=== PATIENT | female | born 1965 | race Caucasian/White ===

== ENCOUNTER → 2017-12-17 15:27 | Outpatient (CLI) | payer OTHER, SELFPAY ==
--- NOTE | 2017-12-17 15:29 | CT_ITS ---
STUDY: CT CHEST WITH CONTRAST REASON FOR EXAM: Female, 52 years old. ABNORMAL CXR-HAD PNEUMONIA END OF SEPTEMBER, CHRONIC COUGH, HX-ASTHMA RADIATION DOSAGE (If Supplied By Facility): CTDIvol = ( 11.22 ) mGy, DLP = ( 349.67 ) mGycm TECHNIQUE: Transaxial imaging was performed following intravenous administration of 100 ml of Isovue 300 contrast material. Individualized dose optimization techniques were used for this CT. COMPARISON: CR Chest Oct 02 2017 3:07pm FINDINGS: There is a mild infiltrate in the right lower lobe consistent for pneumonia. There is no demonstrated pleural abnormality. Normal heart and pericardium. Normal mediastinum. Normal hilar regions. Normal enhanced pulmonary arteries. Normal aorta arch and descending thoracic aorta. There is endplate spondylosis of the vertebral body. There is no demonstrated abnormality of the visualized upper abdomen. CT/Chest WITH Contrast IMPRESSION: There is a mild infiltrate in the right lower lobe consistent for pneumonia. Electronically Signed: Arnoldo Sandoval MD at 19:25 EDT , Service support ,
== END ==
PROVIDERS: Family Provider Nurse Practitioner; PCP Nurse Practitioner; Visit Provider Nurse Practitioner
DX: R93.8 Abnormal findings on diagnostic imaging of other specified body structures (principal)
CPT/HCPCS: 71260; Q9967

== ENCOUNTER → 2018-01-24 13:57 | Outpatient (CLI) | payer OTHER, SELFPAY | PROVIDERS: Family Provider Nurse Practitioner; PCP Nurse Practitioner; Visit Provider Nurse Practitioner | DX: R00.2 Palpitations (principal) | CPT/HCPCS: 93225; 93226 ==

== ENCOUNTER → 2018-08-16 10:52 | Outpatient (CLI) | payer OTHER, SELFPAY ==
[2018-08-16 11:20] LABS: Absolute Lymphocyte Count 1.58 X10^3/ul (0.83-4.51); Absolute Neutrophil Count 2.4 X10^3/uL (2.0-7.7); Basophil# 0.02 X10^3/uL; Basophil% 0.4 % (0-1); Eosinophil# 0.15 X10^3/uL; Eosinophils% 3.1 % (0-5); Hematocrit 44.2 % (37-47); Hemoglobin 14.5 g/dl (12.0-15.0); Lymphocyte # 1.58 X10^3/ul (4.0); Lymphocyte % 33.1 % (19-41); Mean Corp Hgb Conc 32.8 g/gl (32-36); Mean Corpuscular Hgb 31.6 pg (27.0-32.0); Mean Corpuscular Volume 96.3 fL (81-99); Mean Platelet Vol. 8.3 fl (6.2-12.0); Monocyte# 0.64 X10^3/uL; Monocyte% 13.4 % (0-10); Neutrophil # 2.38 X10^3/uL (2.7-7.7); Neutrophil % 49.8 % (47-70); POSITIVE COUNT NO; POSITIVE DIFFERENTIAL NO; POSITIVE MORPHOLOGY NO; Platelet Count 245 K/mm3 (150-450); RBC Distribution Width CV 12.8 % (11.6-14.6); RBC Distribution Width SD 44.2 fl (35.1-43.9); Red Blood Count 4.59 M/mm3 (4.2-5.4); White Blood Count 4.8 K/mm3 (4.4-11.0)
[2018-08-16 11:59] LABS: AST(SGOT) 17 U/L (15-37); Alanine Aminotransfer ALT/SGPT 22 U/L (13-56); Albumin, Serum 3.9 g/dL (3.2-5.0); Alkaline Phosphatase 61 U/L (45-117); Anion Gap 3 (5-15); BUN 14 mg/dL (7-18); BUN/Creat Ratio 16.4 RATIO (10-20); Bilirubin, Direct 0.26 mg/dL (0.00-0.30); Calcium,Total 8.3 mg/dL (8.5-10.1); Chloride 105 mmol/L (98-107); Cholesterol 202 mg/dL (200); Creatinine, Serum 0.86 mg/dL (0.55-1.02); EST Glomerular Filtration Rate 74 mL/min (>60); Est Glom Filt Rate - Afr Amer 89 mL/min (>60); Globulin 3.2 g/dL (2.2-4.2); Glucose 82 mg/dL (74-106); High Density Lipoprotein 70 mg/dL; Potassium 4.3 mmol/L (3.5-5.1); Protein, Total 7.1 g/dL (6.4-8.2); Sodium Level 138 mmol/L (136-145); Triglycerides 84 mg/dL; Very Low Density Lipoprotein 17 mg/dL (5-40)
== END ==
PROVIDERS: Family Provider Nurse Practitioner; PCP Nurse Practitioner; Referring Provider Nurse Practitioner; Visit Provider Nurse Practitioner
DX: Z13.220 Encounter for screening for lipoid disorders (principal); J45.909 Unspecified asthma, uncomplicated
CPT/HCPCS: 36415; 80048; 80061; 80076; 85025

== ENCOUNTER → 2018-10-03 10:30 | Outpatient (CLI) | payer OTHER, SELFPAY ==
--- NOTE | 2018-10-03 10:33 | BI_ITS ---
MAMMOGRAPHY - BILATERAL SCREENING REASON FOR EXAM: Female, 53 years old. Routine annual screening examination. PERTINENT HISTORY: Non-contributory. TECHNIQUE: Digital bilateral breast pranay (3D mammographic acquisition) in the CC and MLO projections. 2-D mediolateral oblique (MLO) and craniocaudad (CC) views of both breasts were obtained. CAD: Full Field Digital Mammography with Computer Added Detection was performed. COMPARISON: Comparison is made with prior examination dated March 19, 2017. FINDINGS: Breast Composition: The breasts are heterogeneously dense, which may obscure small masses. There are no dominant masses or suspicious calcifications. Stable bilateral axillary lymph nodes. No other significant abnormalities are identified. There has been no significant change since the prior study. BI/SCREENING MAMM (CAD), BILAT IMPRESSION: Stable bilateral screening mammogram. Yearly follow-up mammogram recommended. (A) ASSESSMENT CATEGORY: BIRADS Category 2: Benign. A letter regarding these results will be sent to the patient by the facility within 30 days. Approximately 10% of breast cancers are not detected by mammography. A normal mammogram should not delay biopsy of a clinically suspicious abnormality. [id number] Electronically Signed: Vamsi Akbar MD at 9:24 EST Tel [phone], Service support ,
== END ==
PROVIDERS: Family Provider Nurse Practitioner; PCP Nurse Practitioner; Visit Provider Nurse Practitioner Women's Health
DX: Z12.31 Encounter for screening mammogram for malignant neoplasm of breast (principal)
CPT/HCPCS: 77063; 77067

== ENCOUNTER 2019-07-06 14:34 | Emergency (ER) | payer OTHER, SELFPAY ==
[2018-10-03 11:45] VITALS: BMI 25.3
[2019-07-06] VITALS (7 sets, daily range): BP systolic 116–147; BP diastolic 72–94; PULSE 71–120; RESP 16–21; TEMP 38.2–38.4; O2SAT 97–100; BMI 22.9
--- NOTE | 2019-07-06 14:59 | EKG12_ITS ---
Test Reason : CP Blood Pressure : / mmHG Vent. Rate : 112 BPM Atrial Rate : 112 BPM P-R Int : 154 ms QRS Dur : 094 ms QT Int : 326 ms P-R-T Axes : 044 046 055 degrees QTc Int : 444 ms Sinus tachycardia [id number] Confirmed by LEELEE GILLETTE, KEV ([id number]), story editor LOUISE MURRAY ([id number]) on 07/08/2019 12:27:54 PM Referred By: RUBI/ARCAELI Confirmed By:KEV MCKOY MD
--- NOTE | 2019-07-06 15:02 | RAD_ITS ---
STUDY: X-RAY CHEST REASON FOR EXAM: Female, 54 years old. Chest pain, cough TECHNIQUE: Single AP portable view of the chest. COMPARISON: 10/02/2017 FINDINGS: The lungs are clear and expanded. There is no demonstrated pleural abnormality. Normal size heart. Normal mediastinum and kinjal. Normal visualized pulmonary arteries. Normal visualized aortic arch and descending thoracic aorta. Normal visualized thoracic spine. Normal visualized ribs, clavicles, and shoulders. There is no demonstrated abnormality of the visualized soft tissue structures of the upper abdomen. RAD/Chest 1 View (Portable) IMPRESSION: Normal x-ray examination of the chest. Electronically Signed: Michael Rene MD at 15:19 EDT Tel , Service support ,
--- NOTE | 2019-07-06 15:03 | ED.DCSUM_ITS ---
- ER Visit Summary Date of Service: 07/06/19 Chief Complaint: Chest pain History of Present Illness: The patient is a 54 F with chest pain that started yesterday and was worse today. It is retrosternal and radiates to her left chest. Worse with breathing and. Patient has associated shortness of breath an d cough. She has a history of asthma. She used 1 puff of her albuterol inhaler about 2 hours ago. No improvement. She is not currently on steroids or antibiotics. She denies sputum or fever, although she does have a fever here. She denies any history of heart disease, PE. Physical Examination: Temperature 101.1 and heart rate 120. Blood pressure 147/94. 100% on room air. Patient alert and oriented. Appears uncomfortable but not in distress. HEENT exam grossly unremarkable. Heart tachycardic but regular. Lungs clear bilaterally. Extremities nontender with no edema. Skin appears normal. Test Results: EKG showed sinus rhythm at a rate of 112. No sign of acute ischemia or infarction pattern. X-ray and blood work are pending, see below. Emergency Department Course and Treatment: EKG was done. Patient was placed on a monitor. She was treated with IV fluids and Tylenol. Labs and x-ray pending. Patient had a white count of 13.4. Otherwise CBC and BMP normal. Troponin normal. Lactate normal. D-dimer normal. TSH normal. Influenza test negative. Chest x-ray negative. Patient has a fever and tachycardia and elevated white blood cell count. On reevaluation, heart rate is 97. She is afebrile. I believe this is likely an infectious process. Some influenza type illness or viral syndrome. Because of her history of asthma, I did treat her with a DuoNeb, Solu-Medrol, and azithromycin. On reevaluation, she is stable. She is low risk for PE. A d-dimer was negative. She has no cardiac risk factors. There is nothing to suggest dissection. I suspect this is infectious. Patient was advised guarding the risks and will follow-up with her doctor as an outpatient. Return for any new or worsening issues. Treatment Plan: As above Disposition: Discharged Impression: 1. Atypical chest pain 2. Febrile illness This note was generated with [employer] software. It may contain incorrect words, spelling, and punctuation that were not noted in review of the chart prior to signing ED Disposition - Plan for ED Patient: Referrals: Chayo Adame, WIND TUNNEL TECHNICIAN-C [Primary Care Provider] -
[2019-07-06] MEDS: Acetaminophen 325 MG Tablet 650 MG PO (15:23)
[2019-07-06] MEDS: 0.9% Normal Saline 1,000 ML 1000 ML IV (15:23)
[2019-07-06 15:42] LABS: Absolute Lymphocyte Count 1.07 X10^3/uL (0.83-4.51); Basophil# 0.03 X10^3/uL; Basophil% 0.2 % (0-1); Eosinophil# 0.03 X10^3/uL; Eosinophils% 0.2 % (0-5); Hematocrit 41.6 % (37-47); Hemoglobin 13.8 g/dL (12.0-15.0); Lymphocyte # 1.07 X10^3/ul (4.0); Mean Corp Hgb Conc 33.2 g/dL (32-36); Mean Corpuscular Hgb 31.4 pg (27.0-32.0); Mean Corpuscular Volume 94.5 fL (81-99); Mean Platelet Vol. 8.7 fl (6.2-12.0); Monocyte# 1.22 X10^3/uL; Monocyte% 9.1 % (0-10); NRBC Flagged by Analyzer 0 % (0-5); Neutrophil # 10.99 X10^3/uL (2.7-7.7); Neutrophil % 82.1 % (47-70); Platelet Count 218 K/mm3 (150-450); RBC Distribution Width CV 11.9 % (11.6-14.6); RBC Distribution Width SD 41.6 fl (35.1-43.9); White Blood Count 13.4 K/mm3 (4.4-11.0)
[2019-07-06 16:00] LABS: Lactic Acid 1.3 mmol/L (0.4-2.0)
[2019-07-06 16:06] LABS: Anion Gap 6 (5-15); BUN 16 mg/dL (7-18); BUN/Creat Ratio 22.3 RATIO (10-20); Calcium,Total 9.2 mg/dL (8.5-10.1); Chloride 105 mmol/L (98-107); Creatinine, Serum 0.72 mg/dL (0.55-1.02); EST Glomerular Filtration Rate 90 mL/min (>60); Est Glom Filt Rate - Afr Amer 109 mL/min (>60); Estimated Creatinine Clearance 96.59 ml/min; Glucose 95 mg/dL (74-106); Potassium 3.8 mmol/L (3.5-5.1); Sodium Level 139 mmol/L (136-145); Thyroid Stim Hormone (TSH) 0.65 uIU/mL (0.358-3.74)
[2019-07-06 16:11] LABS: D-Dimer Quantitative (DVT/PE) 0.28 FEU/ug/m (0.27-0.49)
[2019-07-06] MEDS: Ipratropium/Albuterol Sulfate 3 ML AMPUL.NEB INHALATION (16:39)
[2019-07-06] MEDS: MethylPREDNISolone 125 MG/2 ML Vial IV (16:44)
[2019-07-06] MEDS: Azithromycin 250 MG Tablet 500 MG PO (16:44)
--- NOTE | 2019-07-06 17:38 | DCINST.ED_ITS ---
ED Disposition - Plan for ED Patient: Instructions: CHEST PAIN, Uncertain Cause Prescriptions: Azithromycin [Zithromax] 250 mg PO DAILY #4 tab Prescription Printed Referrals: Chayo Adame, PROGRAMMING DEVELOPMENT PROJECT MANAGER-C [Primary Care Provider] -
== END 2019-07-06 17:53 | disposition home or self-care (01) ==
PROVIDERS: Emergency Provider Emergency Medicine; Family Provider Nurse Practitioner; PCP Nurse Practitioner
DX: R07.89 Other chest pain (principal); R50.9 Fever, unspecified; J45.909 Unspecified asthma, uncomplicated
CPT/HCPCS: 71045; 80048; 83605; 84443; 84484; 85025; 85379; 87804; 93005; 94640; 96361; 96374; 99284; J7030; A4216

== ENCOUNTER → 2019-10-21 14:53 | Outpatient (CLI) | payer OTHER, SELFPAY ==
[2018-10-03 11:45] VITALS: BMI 25.3
[2019-07-06 14:34] VITALS: BMI 22.9
--- NOTE | 2019-10-21 14:54 | BI_ITS ---
MAMMOGRAPHY - BILATERAL SCREENING REASON FOR EXAM: Female, 54 years old. Routine annual screening examination. PERTINENT HISTORY: Non-contributory. TECHNIQUE: Digital bilateral breast elliott (3D mammographic acquisition) in the CC and MLO projections. 2-D mediolateral oblique (MLO) and craniocaudad (CC) views of both breasts were obtained. CAD: Full Field Digital Mammography with Computer Added Detection was performed. COMPARISON: Comparison is made with prior study dated October 03, 2018. FINDINGS: Breast Composition: The breasts are heterogeneously dense, which may obscure small masses. There are no dominant masses or suspicious calcifications. Stable benign-appearing small axillary lymph nodes. No other significant abnormalities are identified. There has been no significant change since the prior study. BI/SCREEN MAMM (CAD) W/ELLIOTT BILAT IMPRESSION: Stable bilateral screening mammogram. Yearly follow-up mammogram recommended. (A) ASSESSMENT CATEGORY: BIRADS Category 2: Benign. A letter regarding these results will be sent to the patient by the facility within 30 days. Approximately 10% of breast cancers are not detected by mammography. A normal mammogram should not delay biopsy of a clinically suspicious abnormality. [id number] Electronically Signed: Vamsi Akbar, at 15:55 EST , Service support ,
== END ==
PROVIDERS: Family Provider Nurse Practitioner; PCP Nurse Practitioner; Referring Provider Nurse Practitioner Women's Health; Visit Provider Nurse Practitioner Women's Health
DX: Z12.31 Encounter for screening mammogram for malignant neoplasm of breast (principal)
CPT/HCPCS: 77063; 77067

== ENCOUNTER → 2019-12-31 12:26 | Outpatient (CLI) | payer OTHER, SELFPAY ==
[2019-10-21 15:48] VITALS: BMI 22.9
--- NOTE | 2019-12-31 12:29 | RAD_ITS ---
STUDY: X-RAY CHEST REASON FOR EXAM: Female, 54 years old. COUGH X 3 WEEKS. LOW GRADE FEVER TECHNIQUE: 2 views COMPARISON: Prior chest radiograph of July 06, 2019, October 02, 2017 and a prior chest CT exam of December 17, 2017 FINDINGS: Small focal area of linear change in the lingula without other infiltrates, consolidation or pleural effusion. Normal size heart. Normal mediastinum and kinjal. Normal visualized pulmonary arteries. Normal visualized aortic arch and descending thoracic aorta. Normal visualized thoracic spine. Normal visualized ribs, clavicles, and shoulders. There is no demonstrated abnormality of the visualized soft tissue structures of the upper abdomen. RAD/Chest PA and Lateral IMPRESSION: Minimal infiltrate or atelectasis in the lingula. Otherwise negative for major consolidation, focal atelectasis, cardiomegaly or pleural effusion. This pattern not an established pattern for COVID19 infection. Recommend management on clinical grounds if the patient has known or is under investigation for this infection. No specific imaging follow-up recommended based on CDC and ACR guidelines. Electronically Signed: Joyce Roberts MD at 17:26 EDT , Service support ,
== END ==
PROVIDERS: PCP Nurse Practitioner; Referring Provider Internal Medicine; Visit Provider Internal Medicine
DX: R05 Cough (principal)
CPT/HCPCS: 71046

== ENCOUNTER → 2020-04-04 17:24 | Outpatient (CLI) | payer OTHER, SELFPAY ==
[2019-10-21 15:48] VITALS: BMI 22.9
--- NOTE | 2020-04-04 17:30 | CT_ITS ---
STUDY: CT ABDOMEN AND PELVIS WITH CONTRAST REASON FOR EXAM: Female, 55 years old. PAIN LEFT SIDE SINCE SAT. NAUSEA AND DIARRHEA. BLOODY STOOL TODAY. RADIATION DOSAGE (If Supplied By Facility): CTDIvol = ( 13.869 ) mGy, DLP = ( 697.20 ) mGycm TECHNIQUE: Transaxial images were obtained from the dome of the diaphragm to the symphysis pubis with oral contrast. Oral and amp; IV Gastrografin and amp; 100mL Isovue-300 was administered. Sagittal and coronal images were reconstructed. Individualized dose optimization techniques were used for this CT. COMPARISON: None. FINDINGS: The visualized lung bases are unremarkable. The visualized portions of the heart are within normal limits. Normal liver. Normal gallbladder and extrahepatic biliary system. Normal spleen. Normal pancreas. Normal bilateral adrenal glands. No obstructive uropathy, there is a simple 1 cm cyst in the right kidney Normal visualized stomach. Normal small intestine. The distal descending and proximal sigmoid colon, there is some mucosal thickening with associated pericolonic inflammation consistent with acute focal diverticulitis. No perforation or abscess is noted. Retained stool noted throughout the majority of the colon with scattered colonic diverticula noted. There is non-visualization of the appendix. Normal abdominal aorta. Normal inferior vena cava. Normal retroperitoneum. Normal urinary bladder. Uterus is present and contains an IUD. Normal abdominal wall. There are diffuse degenerative changes of the visualized lumbar spine. CT/Abdomen/Pelvis WITH Contrast IMPRESSION: Abnormal submucosal thickening of the distal descending and proximal sigmoid colon with pericolonic inflammation suggesting acute focal diverticulitis. No perforation or abscess noted. Findings seen best on coronal recon images 40 through 53 No suspicious solid organ abnormality, 1 cm right renal cyst needs no specific follow-up IUD present within the uterus Electronically Signed: Orlando Glaser MD at 18:41 EDT , Service support ,
== END ==
PROVIDERS: PCP Nurse Practitioner; Visit Provider Nurse Practitioner
DX: R10.32 Left lower quadrant pain (principal)
CPT/HCPCS: 74177; Q9967

== ENCOUNTER → 2020-04-04 | Outpatient (CLI) | payer OTHER, SELFPAY ==
[2019-10-21 15:48] VITALS: BMI 22.9
[2020-04-04 12:54] LABS: Absolute Lymphocyte Count 1.68 X10^3/uL (0.83-4.51); Basophil# 0.04 X10^3/uL; Basophil% 0.3 % (0-1); Eosinophil# 0.06 X10^3/uL; Eosinophils% 0.5 % (0-5); Hemoglobin 15.1 g/dL (12.0-15.0); Lymphocyte # 1.68 X10^3/ul (4.0); Lymphocyte % 13.9 % (19-41); Mean Corp Hgb Conc 32.8 g/dL (32-36); Mean Corpuscular Hgb 31.1 pg (27.0-32.0); Mean Corpuscular Volume 94.8 fL (81-99); Mean Platelet Vol. 9.3 fl (6.2-12.0); Monocyte# 1.23 X10^3/uL; Monocyte% 10.2 % (0-10); NRBC Flagged by Analyzer 0 % (0-5); Neutrophil # 9.03 X10^3/uL (2.7-7.7); Neutrophil % 74.8 % (47-70); Platelet Count 274 K/mm3 (150-450); RBC Distribution Width CV 12.1 % (11.6-14.6); RBC Distribution Width SD 41.8 fl (35.1-43.9); Red Blood Count 4.85 M/mm3 (4.2-5.4); White Blood Count 12.1 K/mm3 (4.4-11.0)
[2020-04-04 13:02] LABS: Albumin, Serum 4.2 g/dL (3.2-5.0); BUN 14 mg/dL (7-18); BUN/Creat Ratio 16.9 RATIO (10-20); Calcium,Total 9.2 mg/dL (8.5-10.1); Chloride 105 mmol/L (98-107); Creatinine, Serum 0.83 mg/dL (0.55-1.02); EST Glomerular Filtration Rate 76 mL/min (>60); Est Glom Filt Rate - Afr Amer 92 mL/min (>60); Glucose 91 mg/dL (74-106); Phosphorus 3.8 mg/dL (2.5-4.9); Potassium 4.1 mmol/L (3.5-5.1); Sodium Level 140 mmol/L (136-145)
== END | disposition home or self-care (01) ==
LOC: LABSPEC 12:36
PROVIDERS: PCP Nurse Practitioner; Referring Provider Nurse Practitioner; Visit Provider Nurse Practitioner
DX: R10.32 Left lower quadrant pain (principal); R50.9 Fever, unspecified
CPT/HCPCS: 80069; 85025

== ENCOUNTER → 2020-11-04 13:17 | Outpatient (CLI) | payer OTHER, SELFPAY ==
[2019-10-21 15:48] VITALS: BMI 22.9
--- NOTE | 2020-11-04 13:20 | BI_ITS ---
MAMMOGRAPHY - BILATERAL SCREENING REASON FOR EXAM: Female, 55 years old. Routine annual screening examination. PERTINENT HISTORY: Non-contributory. TECHNIQUE: Digital bilateral breast elliott (3D mammographic acquisition) in the CC and MLO projections. 2-D mediolateral oblique (MLO) and craniocaudad (CC) views of both breasts were obtained. CAD: Full Field Digital Mammography with Computer Added Detection was performed. COMPARISON: Comparison is made with prior study dated 10/21/2019 and 10/03/2015. FINDINGS: Breast Composition: The breasts are heterogeneously dense, which may obscure small masses. There are no dominant masses or suspicious calcifications. Stable small benign-appearing bilateral axillary lymph nodes. No other significant abnormalities are identified. There has been no significant change since the prior study. BI/SCRN MAMM (CAD)W/ELLIOTT BILAT IMPRESSION: Stable bilateral screening mammogram. Yearly follow-up mammogram recommended. (A) ASSESSMENT CATEGORY: BIRADS Category 2: Benign. A letter regarding these results will be sent to the patient by the facility within 30 days. Approximately 10% of breast cancers are not detected by mammography. A normal mammogram should not delay biopsy of a clinically suspicious abnormality. [id number] Electronically Signed: Vamsi Akbar MD at 14:37 EST , Service support ,
== END ==
PROVIDERS: PCP Nurse Practitioner; Referring Provider Obstetrics & Gynecology; Visit Provider Obstetrics & Gynecology
DX: Z12.31 Encounter for screening mammogram for malignant neoplasm of breast (principal)
CPT/HCPCS: 77063; 77067

== ENCOUNTER → 2020-11-11 15:02 | Outpatient (CLI) | payer OTHER, SELFPAY ==
[2020-11-04 14:29] VITALS: BMI 23.3
--- NOTE | 2020-11-11 15:03 | US_ITS ---
STUDY: ULTRASOUND BREAST - RIGHT REASON FOR EXAM: Female, 55 years old. Palpable lump in the right breast. TECHNIQUE: Axial and longitudinal images of the RIGHT breast were performed with a high resolution ultrasound transducer. # OF IMAGES: 35 COMPARISON: Comparison is made with prior mammogram dated 11/04/2020. FINDINGS: RIGHT Breast: The upper lateral aspect of the right breast was examined by ultrasound. There is dense fibroglandular tissue. No sonographic abnormality is seen. US/Breast Limited Unilateral IMPRESSION: No sonographic abnormality is seen. ASSESSMENT CATEGORY: BIRADS Category 1: Negative. A letter regarding these results will be sent to the patient by the facility within 30 days. Electronically Signed: Vamsi Akbar MD at 15:35 EST , Service support ,
== END ==
PROVIDERS: PCP Nurse Practitioner; Referring Provider Obstetrics & Gynecology; Visit Provider Obstetrics & Gynecology
DX: N63.11 Unspecified lump in the right breast, upper outer quadrant (principal)
CPT/HCPCS: 76642

== ENCOUNTER 2021-12-15 08:55 | Outpatient (CLI) | payer OTHER, SELFPAY ==
[2021-12-15 09:24] LABS: Absolute Lymphocyte Count 1.48 X10^3/uL (0.83-4.51); Absolute Neutrophil Count 2.4 X10^3/uL (2.0-7.7); Basophil# 0.04 X10^3/uL; Basophil% 0.9 % (0-1); Eosinophil# 0.09 X10^3/uL; Hematocrit 42.5 % (37-47); Hemoglobin 14.1 g/dL (12.0-15.0); Lymphocyte # 1.48 X10^3/ul (0.83-4.51); Lymphocyte % 32.2 % (19-41); Mean Corp Hgb Conc 33.2 g/dL (32-36); Mean Corpuscular Hgb 30.9 pg (27.0-32.0); Mean Corpuscular Volume 93.2 fL (81-99); Mean Platelet Vol. 8.4 fl (6.2-12.0); NRBC Flagged by Analyzer 0 % (0-5); Neutrophil # 2.39 X10^3/uL (2.7-7.7); Neutrophil % 51.9 % (47-70); Platelet Count 232 K/mm3 (150-450); RBC Distribution Width SD 41.5 fl (35.1-43.9); Red Blood Count 4.56 M/mm3 (4.2-5.4); White Blood Count 4.6 K/mm3 (4.4-11.0)
[2021-12-15 10:01] LABS: ALB/GLOB Ratio 1.3 RATIO (0.9-2.4); AST(SGOT) 45 U/L (15-37); Alanine Aminotransfer ALT/SGPT 37 U/L (13-56); Albumin, Serum 4.1 g/dL (3.2-5.0); Alkaline Phosphatase 60 U/L (45-117); Anion Gap 3 (5-15); BUN 13 mg/dL (7-18); BUN/Creat Ratio 12.3 RATIO (10-20); Calcium,Total 9.2 mg/dL (8.5-10.1); Chloride 108 mmol/L (98-107); Cholesterol 206 mg/dL (200); Creatinine, Serum 1.06 mg/dL (0.55-1.02); EST Glomerular Filtration Rate 57 mL/min (>60); Est Glom Filt Rate - Afr Amer 69 mL/min (>60); Globulin 3.1 g/dL (2.2-4.2); Glucose 95 mg/dL (74-106); High Density Lipoprotein 83 mg/dL; Potassium 4.2 mmol/L (3.5-5.1); Protein, Total 7.2 g/dL (6.4-8.2); Sodium Level 140 mmol/L (136-145); Thyroid Stim Hormone (TSH) 1.13 uIU/mL (0.358-3.74); Triglycerides 69 mg/dL; Very Low Density Lipoprotein 14 mg/dL (5-40)
== END 2021-12-15 23:59 | disposition home or self-care (01) ==
LOC: LAB 08:56
PROVIDERS: PCP Nurse Practitioner; Visit Provider Nurse Practitioner
DX: R03.0 Elevated blood-pressure reading, without diagnosis of hypertension (principal)
CPT/HCPCS: 36415; 80053; 80061; 84443; 85025

== ENCOUNTER 2021-12-22 09:18 | Outpatient (CLI) | payer OTHER, SELFPAY ==
--- NOTE | 2021-12-22 09:21 | BI_ITS ---
MAMMOGRAPHY - BILATERAL SCREENING 3-D TOMOSYNTHESIS REASON FOR EXAM: Female, 56 years old. screening mammogram PERTINENT HISTORY: No significant family history. TECHNIQUE: 2-D mammograms and 3-D Tomosynthesis of the breast (s) were performed. CAD was performed. COMPARISON: 11/04/2020 FINDINGS: The breast composition is heterogeneously dense that can obscure small breast masses. Scattered benign calcifications are seen. No dense spiculated masses or suspicious microcalcifications are identified. No architectural distortion is identified. There is no skin thickening or retraction. There has been no significant change since the prior study. BI/SCRN MAMM (CAD)W/ELLIOTT BILAT IMPRESSION: No mammographic signs of malignancy. Routine yearly mammograms recommended. ASSESSMENT CATEGORY: BIRADS Category 1: Negative. A letter regarding these results will be sent to the patient by the facility within 30 days. FOLLOW UP RECOMMENDATION: Yearly follow up mammogram recommended. (A) Approximately 10% of breast cancers are not detected by mammography. A normal mammogram should not delay biopsy of a clinically suspicious abnormality. Electronically Signed: Michael Rene MD at 13:27 EDT ,
--- NOTE | 2021-12-22 09:22 | US_ITS ---
STUDY: ABDOMINAL ULTRASOUND - RIGHT UPPER QUADRANT REASON FOR VISIT: Female, 56 years old. ABDOMEN PAIN ELEVATED LIVER ENZYMERS TECHNIQUE: Ultrasound evaluation of the right upper quadrant was performed with real-time and static duvall-scale imaging. TECHNICAL QUALITY: Adequate. COMPARISON: None. FINDINGS: Liver: There is increased echogenicity consistent with fatty infiltration. The bile ducts are within normal limits. There is hepatic color flow. The direction of portal flow is hepatopetal. There is no demonstrated mass lesion. Gallbladder: Normal distended gallbladder. The gallbladder wall measures 2 mm. There is a negative sonographic Martinez''s sign. There is no pericholecystic fluid. There are no gallstones. Common Bile Duct (C.B.D.): The common bile duct measures ( in mm): 2.4 Pancreas: Normal size of the head, body of the pancreas. There is normal echogenicity of the pancreas. There is no demonstrated pancreatic mass or cyst. Right Kidney: Normal size of the right kidney. The right kidney measures 11 cm. . Normal renal cortex. There is no demonstrated renal mass or cyst. There is no right hydronephrosis. Aorta: It is not visualized. There is too much overlying bowel gas. . US/Abdomen Limited IMPRESSION: No acute findings. Note: Renal size measurements and size measurements of other organs etc may vary depending on modality and annealing operator dependent variations in measurements. (i.e. Measuring a kidney on an US does not correlate with an exact same measurement on a CT.) Electronically Signed: Arnoldo Sandoval MD at 16:51 EDT ,
[2021-12-28 14:48] LABS: HPV APTIMA, High Risk Negative (Negative)
== END 2021-12-22 23:59 | disposition home or self-care (01) ==
PROVIDERS: Obstetrics & Gynecology; PCP Nurse Practitioner; Referring Provider Nurse Practitioner; Visit Provider Nurse Practitioner
DX: R74.8 Abnormal levels of other serum enzymes (principal); Z12.4 Encounter for screening for malignant neoplasm of cervix; Z12.31 Encounter for screening mammogram for malignant neoplasm of breast
CPT/HCPCS: 76705; 77063; 77067; 87624; 88175; G0145

== ENCOUNTER 2022-01-12 16:50 | Outpatient (CLI) | payer OTHER, SELFPAY ==
--- NOTE | 2022-01-12 13:15 | EMB_PTH ---
PATIENT: FREDRICK PATEL LOC: [facility] U#:[id number] AGE/SX: 57/F ROOM: RE01/12/[address]: Dr. 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 Chronic endometritis. AM:miesha 01/17/2022 MICROSCOPIC DESCRIPTION Slides are reviewed. GROSS DESCRIPTION Received is one container labeled with the patient's name and not further designated. The specimen consists of reddish-zarate mucoid material measuring in aggregate 1 x 1 x <0.1 cm. The specimen is totally submitted in one cassette. / AM:miesha 01/15/2022 TC:3 CPT: 22886
== END 2022-01-12 23:59 | disposition home or self-care (01) ==
PROVIDERS: PCP Nurse Practitioner; Visit Provider Obstetrics & Gynecology
DX: N71.1 Chronic inflammatory disease of uterus (principal)
CPT/HCPCS: 88305

== ENCOUNTER → 2022-01-26 | Outpatient (CLI) | payer OTHER, SELFPAY ==
--- NOTE | 2022-01-26 09:38 | US_ITS ---
STUDY: ABDOMINAL ULTRASOUND - ELASTOGRAPHY REASON FOR VISIT: Female, 57 years old. Fatty infiltration of the liver. TECHNIQUE: Liver stiffness measurements were obtained on a HDF RS 85 ultrasound machine using a CA 1-7 probe following the SRU guidelines. 3 measurements were obtained using a 2-D-SWE method. The IQR/M was 22% suggesting a quality data set. TECHNICAL QUALITY: Adequate. COMPARISON: Comparison is made with prior sonogram of the right upper quadrant dated 12/22/2021. FINDINGS: Liver: There is no demonstrated mass lesion. Median liver stiffness measured 7 kPa. US/Elastography Parenchyma/Organ IMPRESSION: Liver stiffness measures 7 kPa compatible with F2-F3 (Mild to moderate liver fibrosis) Metavir score. Electronically Signed: Vamsi Akbar MD at 13:20 EDT ,
== END | disposition home or self-care (01) ==
PROVIDERS: Visit Provider Nurse Practitioner
DX: K76.0 Fatty (change of) liver, not elsewhere classified (principal)
CPT/HCPCS: 76981

== ENCOUNTER → 2022-04-13 | Outpatient (CLI) | payer OTHER, SELFPAY ==
[2022-04-13 14:37] LABS: Erythrocyte Sedimentation Rate 3 mm/hr (0-30)
[2022-04-13 14:39] LABS: Absolute Neutrophil Count 2.9 X10^3/uL (2.0-7.7); Basophil# 0.04 X10^3/uL; Basophil% 0.7 % (0-1); Eosinophil# 0.17 X10^3/uL; Eosinophils% 3.1 % (0-5); Hematocrit 41.9 % (37-47); Hemoglobin 13.9 g/dL (12.0-15.0); Lymphocyte % 31.3 % (19-41); Mean Corp Hgb Conc 33.2 g/dL (32-36); Mean Corpuscular Hgb 31.7 pg (27.0-32.0); Mean Corpuscular Volume 95.4 fL (81-99); Mean Platelet Vol. 8.6 fl (6.2-12.0); Monocyte# 0.61 X10^3/uL; Monocyte% 11.2 % (0-10); NRBC Flagged by Analyzer 0 % (0-5); Neutrophil % 53.5 % (47-70); Platelet Count 258 K/mm3 (150-450); RBC Distribution Width CV 12.2 % (11.6-14.6); RBC Distribution Width SD 43.3 fl (35.1-43.9); Red Blood Count 4.39 M/mm3 (4.2-5.4); White Blood Count 5.4 K/mm3 (4.4-11.0)
[2022-04-13 14:42] LABS: Prothrombin Time (Protime)PT. 12.8 SECONDS (11.7-14.9)
[2022-04-13 14:59] LABS: Hemoglobin A1c 5.2 % (3.8-5.6)
[2022-04-13 15:40] LABS: ALB/GLOB Ratio 1.2 RATIO (0.9-2.4); AST(SGOT) 26 U/L (15-37); Alanine Aminotransfer ALT/SGPT 29 U/L (13-56); Albumin, Serum 4.1 g/dL (3.2-5.0); Alkaline Phosphatase 61 U/L (45-117); Anion Gap 6 (5-15); BUN 18 mg/dL (7-18); BUN/Creat Ratio 23.1 RATIO (10-20); CRP < 2.90 mg/L (0.0-3.0); Calcium,Total 9.2 mg/dL (8.5-10.1); Chloride 104 mmol/L (98-107); Creatinine, Serum 0.78 mg/dL (0.55-1.02); EST Glomerular Filtration Rate 81 mL/min (>60); Est Glom Filt Rate - Afr Amer 98 mL/min (>60); Ferritin 58 ng/mL (8-252); Globulin 3.4 g/dL (2.2-4.2); Glucose 90 mg/dL (74-106); LDH 185 U/L (84-246); Protein, Total 7.5 g/dL (6.4-8.2); Sodium Level 140 mmol/L (136-145)
[2022-04-14 09:13] LABS: HIV - WCH Non-Reactive (Nonreactive)
[2022-04-16 14:08] LABS: Anti-Centromere B Ab <0.2 AI (0.0-0.9); Anti-Chromatin <0.2 AI (0.0-0.9); Anti-Jo <0.2 AI (0.0-0.9); Anti-Scleroderma-70 AB <0.2 AI (0.0-0.9); RNP Ab 0.2 AI (0.0-0.9); SJOGREN'S Anti-SS-A test < 0.2 AI (0.0-0.9); SJOGREN'S Anti-SS-B test < 0.2 AI (0.0-0.9); Smith Ab <0.2 AI (0.0-0.9)
[2022-04-16 19:51] LABS: Anti-Mitochondrial AB <20.0 Units (0.0-20.0); Anti-dsDNA Ab 2 IU/mL (0-9)
[2022-04-18 07:08] LABS: Angiotensin Convert Enzyme 29 U/L (14-82); Ceruloplasmin 22.4 mg/dL (19.0-39.0); Cytoplasmic Ab (C-ANCA) <1:20 titer (Neg:<1:20); HEPATITIS B SURFACE AG Negative (Negative); Hep C Antibodies <0.1 s/co ratio (0.0-0.9); Hepatitis A IgM Antibody Negative (Negative); Hepatitis B Core AB IgM Negative (Negative)
[2022-04-19 17:18] LABS: Anti-Smooth Muscle ABS 6 Units (0-19); Copper, Serum or Plasma 97 ug/dL (80-158); Haptoglobin 138 mg/dL (33-346); Perinuclear Ab (P-ANCA) <1:20 titer (Neg:<1:20)
== END | disposition home or self-care (01) ==
LOC: LAB 13:59
PROVIDERS: PCP Nurse Practitioner Family; Referring Provider Internal Medicine Gastroenterology; Visit Provider Internal Medicine Gastroenterology
DX: K76.0 Fatty (change of) liver, not elsewhere classified (principal)
CPT/HCPCS: 36415; 80053; 80074; 82105; 82140; 82164; 82390; 82525; 82728; 83010; 83036; 83516; 83615; 85025; 85610; 85652; 86140; 86225; 86235; 86256; 86703

== ENCOUNTER 2022-07-16 07:09 | Day surgery (SDC) | payer OTHER, SELFPAY ==
[2022-07-16] VITALS (7 sets, daily range): BP systolic 95–127; BP diastolic 61–73; PULSE 74–83; RESP 14–16; TEMP 36.3–36.9; O2SAT 100; BMI 23.4
--- NOTE | 2022-07-16 | GASB_PTH ---
PATIENT: FREDRICK PATEL LOC: [facility] U#:[id number] AGE/SX: 57/F ROOM: RE07/16/[address]: Dr. Gallo Darby DO : 1965 BED: DIS: 07/16/2022 SPEC #: [id number] RECD: 07/16/22 12:39 STATUS: ROSLYN REGwen #: [id number] HANNAH: 07/16/22 00:[address]: Gallo Darby DEPT: SURGICAL PATHOLOGY RECD BY: Paras Vásquez ENTERED: 07/16/22 12:39 SP TYPE: Gastric Bx OTHR DR: Katt Meyers, FRUIT BUYER-C Tissues: A - Gastric mucous membrane B - Duodenum, NOS C - Esophageal mucous membrane D - Ileum, NOS E - COLON BIOPSY Procedures: Special Stain Group II Surgery Specimen Level IV Alcian Blue/PAS (control) HEADER OPERATION: Colonoscopy, EGD ([facility] [place]), biopsy PRE-OP DIAGNOSIS: IBS, fatty liver disease, nonalcoholic TISSUE SUBMITTED: A ? Gastric body biopsy, B ? Duodenum biopsy, C ? Distal esophagus biopsy, D ? Terminal ileum biopsy, E ? Random colonic biopsy MICROSCOPIC DIAGNOSIS A. Gastric body, biopsy: Chronic gastritis. See comment. B. Duodenum, biopsy: Mild nonspecific chronic inflammation. C. Distal esophagus, biopsy: Gastroesophageal junctional mucosa with chronic inflammation. Focal changes of reflux. No evidence of goblet cell metaplasia. See comment. D. Terminal ileum, biopsy: No pathologic change. E. Colon, random biopsy: No pathologic change. AM:miesha 07/17/2022 COMMENT A. The results of immunohistochemistry for Helicobacter pylori will be reported separately ([id number]). C. Alcian blue/PAS stain with matched control supports the above diagnosis. MICROSCOPIC DESCRIPTION Slides are reviewed. GROSS DESCRIPTION A - Received in fixative is one container labeled with the patient's name and designated gastric body biopsy. The specimen consists of two irregular fragments of light zarate soft tissue that in aggregate measure 0.8 x 0.4 x 0.1 cm. The specimen is totally submitted in one cassette. B - Received in fixative is one container labeled with the patient's name and designated duodenum biopsy. The specimen consists of multiple irregular fragments of light zarate soft tissue that in aggregate measure 1 x 0.3 x 0.1 cm. The specimen is totally submitted in one cassette. C - Received in fixative is one container labeled with the patient's name and designated distal esophagus biopsy. The specimen consists of multiple irregular fragments of light zarate soft tissue that in aggregate measure 0.8 x 0.3 x 0.1 cm. The specimen is totally submitted in one cassette. D - Received in fixative is one container labeled with the patient's name and designated terminal ileum biopsy. The specimen consists of multiple irregular fragments of light zarate soft tissue that in aggregate measure 1.5 x 0.3 x 0.1 cm. The specimen is totally submitted in one cassette. E - Received in fixative is one container labeled with the patient's name and designated random colonic biopsy. The specimen consists of multiple irregular fragments of light zarate soft tissue that in aggregate measure 1.8 x 0.5 x 0.1 cm. The specimen is totally submitted in one cassette. / SJ:rg 07/16/2022 TC:3 CPT: 96416 x5, 57925
[2022-07-16] MEDS: Lactated Ringers 1,000 ML 15 ML IV (07:43)
--- NOTE | 2022-07-16 07:58 | PCM.HP.BLA ---
History and Physical Date of Admission: 07/16/22 FREDRICK PATEL, is a 57 F who presents to the office today for?Initial consult. Fredrick established with this clinic 7 with referral from PCP for elevated LFT with abdominal pain. AST H45, total bilirubin H 1.70, ALT and alk phos WNL. Abdominal pain is postprandial, either upper R and L or lower R and L; unable to identify foods that are triggers. Lasts a few minutes and then dissipates; is also not routine. She also has IBS-D and has noted that processed foods will trigger her symptoms. She feels this is well controlled with avoidance of food triggers and is short lived (1-2 hours). Denies alcohol use, IV drug use or blood transfusion. FH without liver disease EGD and colonoscopy last performed seven years prior; possible esophageal polyp, colonic diverticulosis. US RUQ 3.. finding hepatic fatty infiltration without mass or lesions. Remaining exam without acute findings. Liver elastography 01.26.22 with stiffness measuring 7kPa F2/3. ROS Const Constitutional: No anorexia, fatigue, fever(s), weight change or sleep problems Eyes Eyes: No change in vision ENT ENT: No abnormal hearing, difficulty swallowing, mouth lesions, tongue swelling or throat swelling Resp Respiratory: No cough or shortness of breath Cardio Cardiology: No chest pain at rest, chest pain with exertion, shortness of breath or dyspnea on exertion Gastro GI: No difficulty swallowing Genitourinary-Female: No difficulty urinating or burning urination Musc Musculoskeletal: No joint pain, joint swelling, muscle weakness or decreased muscle mass Skin Skin: No hair loss in leg, yellowing of the eye, itchy eyes, rash, skin ulcer or skin swelling Neuro Neurology: No abnormal hearing, abnormal movements, confusion, unsteady gait/balance or memory loss Psych Psychiatric: No anxiety, No confusion and No memory loss Endo Endocrine: No fatigue or weight change Aller/Imm Allergy/Immunologic: No itchy eyes, throat swelling or tongue swelling Sourav/Lymp Hematologic/Lymphatic: No easy bleeding, easy bruising or enlarged lymph nodes Exam Const General: cooperative and comfortable Nutritional Appearance: average body habitus and well nourished HENMT Head: normal to inspection Ears: hearing grossly normal bilaterally Nose: external nose normal Face and sinus: normal facial exam Mouth: oral mucosae normal Throat: posterior oropharynx normal Eyes General: appearance normal, both eyes and all related structures Neck Neck: normal visual inspection Chest Chest palpation & inspection: normal inspection of the chest and normal palpation of entire chest wall Resp Effort & Inspection: normal respiratory effort Auscultation: Bilateral: Clear to Auscultation Cardio Palpation: normal PMI Rate: regular rate Rhythm: regular rhythm GI Inspection: normal to inspection Auscultation: normal bowel sounds Percussion: normal to percussion Palpation: no hepatosplenomegaly Skin General: no rashes or lesions noted Neuro General: patient alert Extrem General: normal to inspection Psych Affect: normal affect Quality Reporting Tobacco Screening ([facility] 138) Smoking Status: Never smoker Assessment and Plan Assessment and Plan (1) IBS (irritable bowel syndrome): ?Status:?Acute ?Plan: She has what sounds like in her bowel syndrome intermittent diarrhea.? She is on a prebiotic and Metamucil.? I suggested to her to take Fiber Choice because it has a prebiotic and it slightly easier to take.? She does have a bowel movement on a daily basis.? Sometimes she occasionally skips a day.? She knows a lot of her triggers and is mostly diet related.? She does not take a lot of nonsteroidals or any blood thinners.? She does take primidone for her essential tremor that can cause some anticholinergic symptoms and contribute to some bowel regularity such as overflow incontinence but she thinks it may be helping with her tremor.? I would not make any recommendations with regard to that medicine at this time. (2) Fatty liver disease, nonalcoholic: ?Status:?Acute ?Plan: I cannot identify any risk factors except for possible genetic risk factors for fatty liver disease.? She did have been elastography that showed she has an F2 to F3 with a Medavire Score of 7.6 kPa.? We will start on ursodiol therapy, we discussed dietary changes and I explained to her that she may need a statin in the future.? She already takes on 80 mg of ursodiol as well told her to increase it to 360 mg which is close to national units I would recommend a full 5 liver disease.? She is not taking any of her medicines that would cause bleeding issues except for aspirin on a daily basis. she will have blood work today to make sure she does not have any other disease.? She will have a repeat FibroScan in approximately 6 months. ? ? ? Orders: Orders HIV - [facility] Today K76.0 - Fatty (change of) liver, not elsewhere classified ? Comprehensive Metabolic Profil Today K76.0 - Fatty (change of) liver, not elsewhere classified ? CRP Today K76.0 - Fatty (change of) liver, not elsewhere classified ? Ferritin Today K76.0 - Fatty (change of) liver, not elsewhere classified ? LDH Today K76.0 - Fatty (change of) liver, not elsewhere classified ? Hemoglobin A1c Today K76.0 - Fatty (change of) liver, not elsewhere classified ? Prothrombin Time w/INR Today K76.0 - Fatty (change of) liver, not elsewhere classified ? CBC W/Diff, Automated Today K76.0 - Fatty (change of) liver, not elsewhere classified ? Erythrocyte Sed Rate Today K76.0 - Fatty (change of) liver, not elsewhere classified ? Anti-Mitochondrial AB Today K76.0 - Fatty (change of) liver, not elsewhere classified ? [facility] Comprehensive Panel Today K76.0 - Fatty (change of) liver, not elsewhere classified ? Hepatitis Panel Acute Today K76.0 - Fatty (change of) liver, not elsewhere classified ? Angiotensin Convert Enzyme Today K76.0 - Fatty (change of) liver, not elsewhere classified ? AFP, Tumor Marker Today K76.0 - Fatty (change of) liver, not elsewhere classified ? ANCA Today K76.0 - Fatty (change of) liver, not elsewhere classified ? Anti-Smooth Muscle ABS Today K76.0 - Fatty (change of) liver, not elsewhere classified ? Ceruloplasmin Today K76.0 - Fatty (change of) liver, not elsewhere classified ? Copper, Serum or Plasma Today K76.0 - Fatty (change of) liver, not elsewhere classified ? Haptoglobin Today K76.0 - Fatty (change of) liver, not elsewhere classified ? Ammonia Today K76.0 - Fatty (change of) liver, not elsewhere classified ? Medications: New ursodiol 250 mg? PO BID 60 tabs 5RF ? ? I have re-examined the patient. There are no clinical changes since date of exam.
--- NOTE | 2022-07-16 08:15 | IMM_PTH ---
PATIENT: FREDRICK PATEL LOC: EN U#:[id number] AGE/SX: 57/F ROOM: RE07/16/[address]: Dr. Gallo Darby DO : 1965 BED: DIS: 07/16/2022 SPEC #: [id number] RECD: 07/16/22 10:35 STATUS: ROSLYN REQ #: [id number] HANNAH: 07/16/22 08:[address]: Gallo Darby DEPT: IMMUNOHISTOCHEMISTRY RECD BY: Dalila Aragon ENTERED: 07/16/22 10:35 SP TYPE: IMMUNO OTHR DR: Katt Meyers, [employer]SULTANT-C Tissues: A - Stomach, NOS Procedures: H Pylori (initial) PHYSICIAN & INSTITUTION [place] [id number] SPECIMEN INFORMATION: Tissue Source: A ? Gastric body biopsy Clinical Info: IBS, fatty liver disease Specimen Number: [id number] CPT code: 75541 METHODOLOGY: Deparaffinized sections of prefer/formalin-fixed tissue or PAP/DQ stained slides are incubated with monoclonal/polyclonal antibodies/oligonucleotide probes. Localization is made via biotin free immunoperoxidase method. Appropriate controls are performed and reacted as expected. Results on target cell population are indicated in the following table: RESULTS: ANTIBODY / CLONE RESULT Block A H Pylori (polyclonal) negative These tests were developed and their performance characteristics determined by [facility]. They may not have been cleared or approved by the U.S. Food and Drug Administration. The FDA has determined that such clearance or approval is not necessary. The above immunohistochemical/dualISH markers are ordered and reviewed by the Pathologist. INTERPRETATION: A. Gastric body, biopsy: Negative for Helicobacter pylori organisms. AM:miesha 07/17/2022
--- NOTE | 2022-07-16 08:43 | OP.CCLET_ITS ---
07/16/2022 Chelsi Lopes Re : Upper GI endoscopy procedure for Kassy Boyce Dear Luigi This procedure was performed on Saturday, July 16, 2022. My impressions and recommendations are as follows: Impressions : - Z-line irregular, 38 cm from the incisors. Biopsied. - Small hiatal hernia. - Erythematous mucosa in the antrum. Biopsied. - Erythematous duodenopathy. Biopsied. Recommendations : - Written discharge instructions were provided to the patient. - The signs and symptoms of potential delayed complications were discussed with the patient. - Patient has a contact number available for emergencies. - Return to normal activities tomorrow. - Resume previous diet. - Continue present medications. - Await pathology results. - Sucralfate 1 g p.o. 3 times daily x1 month. My findings are described in the full procedure note, which is enclosed. If I can be of further assistance, please feel free to contact me at . Sincerely, Gallo Darby DO 07/16/2022 8:42:43 AM This report has been signed electronically.
--- NOTE | 2022-07-16 08:43 | OP.EGD_ITS ---
Patient Name: Kassy Boyce Procedure Date: 07/16/2022 8:01 AM Date of : 1965 Age: 57 Procedure: Upper GI endoscopy Indications: Epigastric abdominal pain, Functional Dyspepsia, Failure to respond to medical treatment Providers: Gallo Darby DO Medicines: Monitored Anesthesia Care Patient Profile: This is a 57 year old female. Refer to note in patient chart for documentation of history and physical. Patient has symptoms of chronic abdominal cramping and chronic abdominal pain. Complications: No immediate complications. Procedure: Pre-Anesthesia Assessment: - Prior to the procedure, a History and Physical was performed, and patient medications and allergies were reviewed. The risks and benefits of the procedure and the sedation options and risks were discussed with the patient. All questions were answered and informed consent was obtained. Patient identification and proposed procedure were verified by the physician in the pre-procedure area. Mental Status Examination: alert and oriented. Airway Examination: normal oropharyngeal airway and neck mobility. Respiratory Examination: clear to auscultation. CV Examination: normal. Prophylactic Antibiotics: The patient does not require prophylactic antibiotics. Prior Anticoagulants: The patient has taken no previous anticoagulant or antiplatelet agents. ASA Grade Assessment: II - A patient with mild systemic disease. After reviewing the risks and benefits, the patient was deemed in satisfactory condition to undergo the procedure. The anesthesia plan was to use monitored anesthesia care (MAC). Immediately prior to administration of medications, the patient was re-assessed for adequacy to receive sedatives. The heart rate, respiratory rate, oxygen saturations, blood pressure, adequacy of pulmonary ventilation, and response to care were monitored throughout the procedure. The physical status of the patient was re-assessed after the procedure. After obtaining informed consent, the endoscope was passed under direct vision. Throughout the procedure, the patient's blood pressure, pulse, and oxygen saturations were monitored continuously. The pediatric colonoscope was introduced through the mouth, and advanced to the second part of duodenum. Scope In: 8:12:35 AM Scope Out: 8:18:03 AM Total Procedure Duration Time 0 hours 5 minutes 28 seconds Findings: The Z-line was irregular and was found 38 cm from the incisors. Biopsies were taken with a cold forceps for histology. Verification of patient identification for the specimen was done. Estimated blood loss was minimal. A small hiatal hernia was present. Patchy mildly erythematous mucosa with bleeding was found in the gastric antrum. Biopsies were taken with a cold forceps for histology. Verification of patient identification for the specimen was done. Estimated blood loss was minimal. Patchy mildly erythematous mucosa without active bleeding and with no stigmata of bleeding was found in the duodenal bulb. Biopsies were taken with a cold forceps for histology. Verification of patient identification for the specimen was done. Estimated blood loss was minimal. Impression: - Z-line irregular, 38 cm from the incisors. Biopsied. - Small hiatal hernia. - Erythematous mucosa in the antrum. Biopsied. - Erythematous duodenopathy. Biopsied. Recommendation: - Written discharge instructions were provided to the patient. - The signs and symptoms of potential delayed complications were discussed with the patient. - Patient has a contact number available for emergencies. - Return to normal activities tomorrow. - Resume previous diet. - Continue present medications. - Await pathology results. - Sucralfate 1 g p.o. 3 times daily x1 month. Procedure Code(s): --- Professional --- 32655, Esophagogastroduodenoscopy, flexible, transoral; with biopsy, single or multiple CPT copyright 2017 [employer]. All rights reserved. The codes documented in this report are preliminary and upon medical billing coder review may be revised to meet current compliance requirements. Gallo Darby DO 07/16/2022 8:42:43 AM This report has been signed electronically. Number of Addenda: 0 Note Initiated On: 07/16/2022 8:01 AM
--- NOTE | 2022-07-16 08:46 | OP.COLON_ITS ---
Patient Name: Kassy Boyce Procedure Date: 07/16/2022 8:18 AM Date of : 1965 Age: 57 Procedure: Colonoscopy Indications: Clinically significant diarrhea of unexplained origin Providers: Gallo Darby DO Medicines: Monitored Anesthesia Care Patient Profile: This is a 57 year old female. Refer to note in patient chart for documentation of history and physical. Patient has symptoms of chronic abdominal cramping and chronic abdominal pain. Last Colonoscopy: more than 3 years ago. Complications: No immediate complications. Procedure: Pre-Anesthesia Assessment: - Prior to the procedure, a History and Physical was performed, and patient medications and allergies were reviewed. The risks and benefits of the procedure and the sedation options and risks were discussed with the patient. All questions were answered and informed consent was obtained. Patient identification and proposed procedure were verified by the physician in the pre-procedure area. Mental Status Examination: alert and oriented. Airway Examination: normal oropharyngeal airway and neck mobility. Respiratory Examination: clear to auscultation. CV Examination: normal. Prophylactic Antibiotics: The patient does not require prophylactic antibiotics. Prior Anticoagulants: The patient has taken no previous anticoagulant or antiplatelet agents. ASA Grade Assessment: II - A patient with mild systemic disease. After reviewing the risks and benefits, the patient was deemed in satisfactory condition to undergo the procedure. The anesthesia plan was to use monitored anesthesia care (MAC). Immediately prior to administration of medications, the patient was re-assessed for adequacy to receive sedatives. The heart rate, respiratory rate, oxygen saturations, blood pressure, adequacy of pulmonary ventilation, and response to care were monitored throughout the procedure. The physical status of the patient was re-assessed after the procedure. After I obtained informed consent, the scope was passed under direct vision. Throughout the procedure, the patient's blood pressure, pulse, and oxygen saturations were monitored continuously. The pediatric colonoscope was introduced through the anus and advanced to the terminal ileum. The colonoscopy was performed without difficulty. The patient tolerated the procedure well. The quality of the bowel preparation was good. Scope In: 8:20:53 AM Scope Withdrawal Time 0 hours 9 minutes 46 seconds Scope Out: 8:36:10 AM Total Procedure Duration Time 0 hours 15 minutes 17 seconds Findings: The perianal and digital rectal examinations were normal. The colon (entire examined portion) appeared normal. Biopsies were taken with a cold forceps for histology. Verification of patient identification for the specimen was done. Estimated blood loss was minimal. Two small-mouthed diverticula were found in the sigmoid colon. A patchy area of the terminal ileum was congested. Biopsies were taken with a cold forceps for histology. Verification of patient identification for the specimen was done. Estimated blood loss was minimal. Impression: - The entire examined colon is normal. Biopsied. - Diverticulosis in the sigmoid colon. - Congested mucosa in the terminal ileum. Biopsied. Recommendation: - Discharge patient to home. - Resume previous diet. - Continue present medications. - Await pathology results. - Repeat colonoscopy in 5 years for surveillance based on pathology results. - Return to GI office. Procedure Code(s): --- Professional --- 03463, Colonoscopy, flexible; with biopsy, single or multiple CPT copyright 2017 [employer]. All rights reserved. The codes documented in this report are preliminary and upon correction officer penitentiary review may be revised to meet current compliance requirements. Gallo Darby DO 07/16/2022 8:45:36 AM This report has been signed electronically. Number of Addenda: 0 Note Initiated On: 07/16/2022 8:18 AM
--- NOTE | 2022-07-16 08:46 | OP.CCLET_ITS ---
07/16/2022 Chelsi Lopes Re : Colonoscopy procedure for Kassy Boyce Dear Luigi This procedure was performed on Saturday, July 16, 2022. My impressions and recommendations are as follows: Impressions : - The entire examined colon is normal. Biopsied. - Diverticulosis in the sigmoid colon. - Congested mucosa in the terminal ileum. Biopsied. Recommendations : - Discharge patient to home. - Resume previous diet. - Continue present medications. - Await pathology results. - Repeat colonoscopy in 5 years for surveillance based on pathology results. - Return to GI office. My findings are described in the full procedure note, which is enclosed. If I can be of further assistance, please feel free to contact me at . Sincerely, Gallo Darby, 07/16/2022 8:45:36 AM This report has been signed electronically.
== END 2022-07-16 09:35 | disposition home or self-care (01) ==
LOC: EN 07:12 → AC 07:12
PROVIDERS: PCP Nurse Practitioner Family; Referring Provider Nurse Practitioner Family; Visit Provider Internal Medicine Gastroenterology
PROC: 0DJD8ZZ Inspection of Lower Intestinal Tract, Via Natural or Artificial Opening Endoscopic (ICD-10-PCS; CPT 45378; principal; 2022-07-16 08:10)
DX: K44.9 Diaphragmatic hernia without obstruction or gangrene (principal); K31.89 Other diseases of stomach and duodenum; K30 Functional dyspepsia; K29.50 Unspecified chronic gastritis without bleeding; K57.30 Diverticulosis of large intestine without perforation or abscess without bleeding; K58.0 Irritable bowel syndrome with diarrhea; K76.0 Fatty (change of) liver, not elsewhere classified
CPT/HCPCS: 45380; 43239; 88305; 88313; 88342; J7120; J2405

== ENCOUNTER → 2022-08-14 | Outpatient (CLI) | payer OTHER, SELFPAY ==
[2022-08-14 17:36] LABS: AST(SGOT) 22 U/L (15-37); Alanine Aminotransfer ALT/SGPT 28 U/L (13-56); Albumin, Serum 4.5 g/dL (3.2-5.0); Alkaline Phosphatase 62 U/L (45-117); Bilirubin, Direct 0.24 mg/dL (0.00-0.30); GGTP 20 U/L (5-55); Globulin 2.8 g/dL (2.2-4.2); Protein, Total 7.3 g/dL (6.4-8.2)
[2022-08-17 00:07] LABS: Endomysial Antibody IgA Negative (Negative); IgG, Quant 715 mg/dL (586-1602); Immunoglobulin A 200 mg/dL (87-352); Immunoglobulin G, Subclass 1 409 mg/dL (248-810); Immunoglobulin G, Subclass 2 296 mg/dL (130-555); Immunoglobulin G, Subclass 3 24 mg/dL (15-102)
[2022-08-17 15:29] LABS: Immunoglobulin G, Subclass 4 26 mg/dL (2-96); t-Transglutaminase IgA <2 U/mL (0-3)
== END | disposition home or self-care (01) ==
LOC: LAB 16:47
PROVIDERS: PCP Nurse Practitioner Family; Visit Provider Nurse Practitioner Adult Health
DX: R76.8 Other specified abnormal immunological findings in serum (principal); R17 Unspecified jaundice; K52.9 Noninfective gastroenteritis and colitis, unspecified
CPT/HCPCS: 36415; 80076; 82784; 82787; 82977; 83516; 86255

== ENCOUNTER → 2022-09-11 | Outpatient (CLI) | payer OTHER, SELFPAY ==
--- NOTE | 2022-09-11 16:55 | RAD_ITS ---
EXAM: XR CHEST, 2 VIEWS CLINICAL INDICATION: persistant cough TECHNIQUE: Frontal and lateral views of the chest. This report was created using [employer] report generation technology. COMPARISON: 12/31/2019 FINDINGS: LUNGS AND PLEURAL SPACES: Unremarkable. No consolidation or edema. No pneumothorax. No effusion. HEART: Unremarkable. Cardiac silhouette not enlarged. MEDIASTINUM: Central airways and mediastinal contour are unremarkable. BONES/JOINTS: Unremarkable. SOFT TISSUES: Unremarkable. RAD/Chest PA and Lateral IMPRESSION: No radiographic evidence of acute cardiopulmonary disease. Electronically Signed: Jason Vines MD at 20:38 EST ,
== END | disposition home or self-care (01) ==
PROVIDERS: PCP Nurse Practitioner Family; Visit Provider Nurse Practitioner Family
DX: R05.3 Chronic cough (principal)
CPT/HCPCS: 71046

== ENCOUNTER → 2022-09-21 | Outpatient (CLI) | payer OTHER, SELFPAY ==
--- NOTE | 2022-09-21 10:19 | MRI_ITS ---
Examination: Abdominal MRI without contrast and MRCP. INDICATION: Elevated atypical P-ANCA. Elevated bilirubin. TECHNIQUE: Multiplanar multisequence MRI of the abdomen was obtained. MRCP 3-D postprocessing imaging was obtained. COMPARISON: CT dated April 04, 2020, ultrasound dated December 22, 2021 and chest radiograph dated September 11, 2022 FINDINGS: The liver and liver are within normal limits. No intra or extrahepatic ductal dilatation is seen. No intraluminal filling defects are visualized. The spleen is within normal limits. The pancreas is within normal limits. No pancreatic ductal dilatation is seen. The adrenal glands and kidneys are grossly unremarkable. No hydronephrosis is seen. There is a small hiatal hernia. There is an indeterminate round metallic density projecting over right upper/mid. Within the The visualized small bowel and colon are within normal limits. No suspicious bony lesions are seen. MRI/MRCP Abdomen without Contrast IMPRESSION: Indeterminate metallic appearing density projecting over the right upper abdomen, may be on the patient or postsurgical, alternatively may reflect a retained ingested foreign body otherwise within normal limits examination Electronically Signed: Kelly Dennis MD at 12:34 EST ,
== END | disposition home or self-care (01) ==
LOC: MRI 10:19
PROVIDERS: PCP Nurse Practitioner Family; Referring Provider Nurse Practitioner Adult Health; Visit Provider Nurse Practitioner Adult Health
DX: K44.9 Diaphragmatic hernia without obstruction or gangrene (principal)
CPT/HCPCS: 74181

== ENCOUNTER → 2022-10-12 | Outpatient (CLI) | payer OTHER, SELFPAY ==
--- NOTE | 2022-10-12 14:41 | US_ITS ---
INDICATION: abnormal MRI- IUD placement EXAMINATION: Ultrasound US Transvaginal Non-OB TECHNIQUE: Transvaginal pelvic ultrasound was performed. Grayscale, spectral waveform, and color flow Doppler evaluation of the adnexa. COMPARISON: None. FINDINGS: UTERUS: Anteverted. The uterus measures 6.6 x 4.0 x 3.1 cm. There is no uterine mass. Nabothian cysts at the cervix. The endometrial stripe measures 2 mm which is within normal limits. An IUD is in place. RIGHT OVARY: . Nonvisualization. LEFT OVARY: 1.3 x 1.5 x 0.9 cm. Non-enlarged, normal echogenicity. There is normal arterial inflow and venous outflow present in the left ovary. FREE FLUID: None. US/Transvaginal Non- IMPRESSION: IUD in the uterus. Nabothian cysts. Electronically Signed: Golden Mackey DO at 23:46 EST Reading Location ID and State: [facility] / [place] Tel [phone], Service support ,
== END | disposition home or self-care (01) ==
LOC: US 14:41
PROVIDERS: PCP Nurse Practitioner Family; Visit Provider Obstetrics & Gynecology
DX: Z30.9 Encounter for contraceptive management, unspecified (principal)
CPT/HCPCS: 76830

== ENCOUNTER → 2022-10-26 | Outpatient (CLI) | payer OTHER, SELFPAY ==
--- NOTE | 2022-10-26 10:45 | RAD_ITS ---
INDICATION: metallic density seen on MRCP -- eval for metallic density RUQ area seen on MRCP EXAMINATION/TECHNIQUE: X-RAY - XR Abdomen W/ Decub and/or Erect Views COMPARISON: None FINDINGS: BOWEL GAS PATTERN: Non-obstructive. No bowel or stomach distention. FREE AIR: Not assessed on a single supine view. ORGANOMEGALY: Not seen. CALCIFICATIONS: No abnormal calcifications observed. LOWER CHEST: No acute pathology. BONES AND SOFT TISSUES: No acute pathology. RAD/Abd Inc Decub and/or Erect IMPRESSION: No radiodense foreign body visualized. Electronically Signed: Leonides Wood MD at 16:51 EST ,
== END | disposition home or self-care (01) ==
LOC: RAD 10:44
PROVIDERS: PCP Nurse Practitioner Family; Visit Provider Nurse Practitioner Adult Health
DX: R93.5 Abnormal findings on diagnostic imaging of other abdominal regions, including retroperitoneum (principal)
CPT/HCPCS: 74019

== ENCOUNTER → 2022-10-30 | Outpatient (CLI) | payer OTHER, SELFPAY | END | disposition home or self-care (01) | LOC: LAB 15:46 | PROVIDERS: PCP Nurse Practitioner Family; Visit Provider Nurse Practitioner Adult Health | DX: R69 Illness, unspecified (principal) ==

== ENCOUNTER → 2022-11-02 | Outpatient (CLI) | payer OTHER, SELFPAY ==
--- NOTE | 2022-11-02 12:24 | CT_ITS ---
STUDY: CT ABDOMEN AND PELVIS WITH CONTRAST REASON FOR EXAM: Female, 57 years old. LLQ pain, hx diverticulitis RADIATION DOSAGE (If Supplied By Facility): CTDIvol = ( 13.39 ) mGy, DLP = ( 802.97 ) mGycm TECHNIQUE: Transaxial images were obtained from the dome of the diaphragm to the symphysis pubis with oral contrast. Oral and amp; IV Gastrografin and amp; 100mL Isovue-300 was administered. Sagittal and coronal images were reconstructed. Individualized dose optimization techniques were used for this CT. COMPARISON: Comparison is made with prior study dated 04/04/2020. FINDINGS: The visualized lung bases are unremarkable. The visualized portions of the heart are within normal limits. Normal liver. Normal gallbladder and extrahepatic biliary system. Normal spleen. There is diffuse atrophy of the pancreas. Normal bilateral adrenal glands. Stable 1 cm cyst in the right kidney. Normal left kidney. Normal visualized stomach. Normal small intestine. There are multiple colonic diverticula consistent with diverticulosis. Moderate amount of fecal material is seen in the colon. The appendix is visualized and appears normal. Normal abdominal aorta. Normal inferior vena cava. Normal retroperitoneum. Normal urinary bladder. IUD is seen within the uterus. Normal abdominal wall. There are degenerative changes of the visualized lumbar spine. CT/Abdomen/Pelvis WITH Contrast IMPRESSION: Sigmoid diverticulosis with no radiographic evidence of diverticulitis at this time. Electronically Signed: Vamsi Akbar MD at 15:03 EST ,
== END | disposition home or self-care (01) ==
LOC: CT 12:22
PROVIDERS: PCP Nurse Practitioner Family; Referring Provider Nurse Practitioner Adult Health; Visit Provider Nurse Practitioner Adult Health
DX: K57.30 Diverticulosis of large intestine without perforation or abscess without bleeding (principal); R10.32 Left lower quadrant pain; Z87.19 Personal history of other diseases of the digestive system
CPT/HCPCS: 74177; Q9967

== ENCOUNTER → 2022-11-03 | Outpatient (CLI) | payer OTHER, SELFPAY ==
[2022-11-07 16:41] LABS: Pancreatic Elastase, Fecal 438 (>200)
== END | disposition home or self-care (01) ==
PROVIDERS: PCP Nurse Practitioner Family; Visit Provider Nurse Practitioner Adult Health
DX: R10.13 Epigastric pain (principal)
CPT/HCPCS: 82653

== ENCOUNTER → 2023-01-18 | Outpatient (CLI) | payer OTHER, SELFPAY ==
--- NOTE | 2023-01-18 12:21 | BI_ITS ---
MAMMOGRAPHY - BILATERAL SCREENING 3-D TOMOSYNTHESIS REASON FOR EXAM: Female, 58 years old. Routine screening PERTINENT HISTORY: No significant family history. TECHNIQUE: 2-D mammograms and 3-D Tomosynthesis of the breast (s) were performed. CAD was performed. COMPARISON: 12/22/2021 FINDINGS: The breast composition is heterogeneously dense that can obscure small breast masses. Scattered benign calcifications are seen. No dense spiculated masses or suspicious microcalcifications are identified. No architectural distortion is identified. There is no skin thickening or retraction. There has been no significant change since the prior study. BI/SCRN MAMM (CAD)W/ELLIOTT BILAT IMPRESSION: No mammographic signs of malignancy. Routine yearly mammograms recommended. ASSESSMENT CATEGORY: BIRADS Category 2: Benign. A letter regarding these results will be sent to the patient by the facility within 30 days. FOLLOW UP RECOMMENDATION: Yearly follow up mammogram recommended. (A) Approximately 10% of breast cancers are not detected by mammography. A normal mammogram should not delay biopsy of a clinically suspicious abnormality. Electronically Signed: Orlando Glaser MD at 13:46 EDT ,
== END | disposition home or self-care (01) ==
LOC: OPBI 12:21
PROVIDERS: PCP Nurse Practitioner Family; Visit Provider Obstetrics & Gynecology
DX: Z12.31 Encounter for screening mammogram for malignant neoplasm of breast (principal)
CPT/HCPCS: 77063; 77067

== ENCOUNTER 2023-06-07 15:00 | Outpatient (RCR) | payer OTHER, SELFPAY ==
--- NOTE | 2023-02-22 13:00 | HP.PTEVAL ---
Patient's Visit Information FREDRICK PATEL is a 58 year old F referred to Physical Therapy by Dr. Kayla Last MD with a diagnosis of STRESS INCONTINENCE. Date of Evaluation: 02/22/23 Physical Therapist: Urvashi London PT, Cert MDT - Visit Plan Frequency: 1x/Week Duration: 8-12 WKS Plan: PF THERAPY FOR STRENGTHENING, LENGTHENING/RELAXATION AND ENDURANCE TRAINING. PELVIC FLOOR STRENGTHENING. URINARY RETENTION, URGE AND FREQUENCY EDUCATION. HEALTHY BLADDER HABIT EDUCATION. TRAINING IN COORDINATION OF PELVIC FLOOR MUSCULATURE WITH HIP AND CORE (TRANSVERSE ABDOMINUS) MUSCULATURE. POSTURE CORRECTION/STRENGTHENING. CORE STRENGTHENING. TREY LE ROM, STRETCHING AND STRENGTHENING. TRAINING IN ABDOMINAL CAVITY PRESSURE MGMT WITH ADL'S. 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 Disability: NO. Present symptoms: PROGRESSION OF UI THAT IS INTERFERRING WITH HER ACTIVITIES. Present since: STARTED WORSENING IN THE PAST YEAR OR SO. Pain Scale: NO. Is it getting better, worse or staying the same: WORSENING. Commenced as a result of: NO APPARENT REASON. Worse: caffeine, EXERCISE, COUGHING, SNEEZING AND ANY STRESS'S. Better: AVOIDING ABOVE. Disturbed sleep: GETTING UP 1-2 TIMES PER NIGHT TO URINATE. Previous history/Previous treatment: UNREMARKABLE. Coughing/sneezing/straining: POSITIVE. Gait: NORMAL. How long can you delay the need to urinate: HOURS. Prolapse (Falling out feeling): NO. Frequency of Urination: 5-8 TIMES A DAY. Ability to stop urine flow: YES. Ability to initiate urine stream: YES. Dyspareunia: NO. Bowel Incontinence: NO. Unexplained weight loss: NO. Imaging: PATIENT REPORTS US TESTING SHOWS GOOD BLADDER EMPTYING. PMH/Recent major surgery: REGULAR CHIROPRACTIC FOR NECK AND BACK PAIN THAT PATIENT RELATES TO HER JOB. - Objective Sitting/Standing Posture: FAIR. DECREASED LORDOSIS BUT NO RELEVANT LATERAL SHIFT. Active Correction of posture: BETTER. Other Observations: INDEP GAIT AND TRANSFERS. Sensory deficit: TREY LE LIGHT TOUCH SENSATION GROSSLY INTACT AND SYMMETRICAL. ROM deficit: TIGHT TREY HS'S AND GASTROC-SOLEUS COMPLEX'S. Motor deficit: TREY LE'S GROSSLY 5/5 WITH MMT'ING EXCEPT HIPS 4/5. Reflexes: 2/3 TREY LE'S. Dural Signs: NEGATIVE TREY LE'S. Lumbar mvmt loss: flex - NIL. ext - MOD. R SG - MIN. L SG - MOD. NO C/O PAIN WITH LUMBAR ROM TESTING. Core strength: POOR. Palpation: NO ACUTE LUMBAR OR HIP TENDERNESS. PATIENT COMMUNICATES A GOOD UNDERSTANDING OF HOW TO CONTRACT PF MUSCLES. FUNCTIONAL SCREEN: Incontinence Impact Questionnaire Score: 3. Urogenital Distress Inventory Score: 9. TREATMENT: SEE TA BELOW. - Goals Goal 1:: DECREASE URINARY LEAKAGE EPISODES TO ONE OR LESS PER DAY Goal Time Frame: 6-8 Weeks Goal 2:: PATIENT WILL DEMONSTRATE/COMMUNICATE 10 CONSISTENT AND CONSECUTIVE 10 SECOND PELVIC FLOOR MUSCLE CONTRACTIONS TO DEMONSTRATE IMPROVED PELVIC FLOOR ENDURANCE. Goal Time Frame: 8-12 Weeks Goal 3:: DEVELOP HEALTHY FLUID INTAKE HABITS WITH FLUID INTAKE OF ? BODY WEIGHT IN OUNCES PER DAY AND 2/3 BEING WATER. Goal Time Frame: 2-4 Weeks Goal 4:: NORMALIZE VOIDING FREQUENCEY TO EVERY 3-4 HOURS. Goal Time Frame: 4-6 Weeks Goal 5:: PATIENT WILL BE INDEP WITH A HEP/HOME INSTRUCTIONS FOR CONTINUED IMPROVEMENT ONCE FORMAL PHYSICAL THERAPY CONCLUDES. Goal Time Frame: 8-12 Weeks - Anticipated Interventions Patient/Client Instruction: Educate patient on: Condition, Plan of Care, Risk Factors For the Purpose of:: To improve self management Therapeutic Exercise to Include: Strength training, Endurance training, Flexibilty training, Neuromotor development For the Purpose of:: To improve muscle performance and motor function, To increase tolerance to activity/condition/position, To improve ability of physical actions for home/community/work/leisure Thank you for the opportunity to evaluate your patient. For Medicare and Medicare HMO plans, please review the plan of care and approve it. It will need to be FAXED BACK to us at [phone] for Medicare purposes. For Medicare only, by signing this I certify the plan of care. Please let me know if there are questions or concerns regarding this plan of care. Physician Signature: Date:
--- NOTE | 2023-06-07 15:14 | HP.PTDCSUM ---
Discharge Summary D/C summary: It has been my pleasure to treat FREDRICK PATEL referred by Dr. Kayla Williamson MD, with the diagnosis of STRESS INCONTINENCE for a total of 8 visit(s). Discharge Date: 06/07/23 Please see the following information for a summary of their discharge status. Subjective Subjective: PATIENT REPORTS FOLLOW UP WITH DR. WILLIAMSON LAST SATURDAY. PLANNING TO GO THE SURGICAL ROUTE BUT NOT SURE WHEN - MAYBE 6 MONTHS TO A YEAR. PATIENT REPORTS SHE HAS BETTER URGE CONTROL SINCE STARTING PT BUT STILL HAS UI WITH THINGS LIKE FAST WALKING. THIS HAS CERTAINLY BEEN A HELP. PATIENT REPORTS THAT OVER-ALL SHE FEELS LIKE HER SX'S ARE PLATEAUING BUT IT IS A BIG DEAL TO HER THAT SHE ISN'T DEALING WITH THE URGE MUCH AND ISN'T GETTING UP AT NIGHT MUCH. Overall Improvement % Improvement: 40 Objective Objective/Function: PATIENT TOLERATED EX PROGRESSION WELL TODAY. SHE IS INDEP WITH A HEP AND APPROPRIATE FOR DISCHARGE. FUNCTIONAL SCREEN: Incontinence Impact Questionnaire Score: 2 Urogenital Distress Inventory Score: 6 Goals Goal 1:: DECREASE URINARY LEAKAGE EPISODES TO ONE OR LESS PER DAY Goal 2:: PATIENT WILL DEMONSTRATE/COMMUNICATE 10 CONSISTENT AND CONSECUTIVE 10 SECOND PELVIC FLOOR MUSCLE CONTRACTIONS TO DEMONSTRATE IMPROVED PELVIC FLOOR ENDURANCE. Goal Progress: Goal Met Goal 3:: DEVELOP HEALTHY FLUID INTAKE HABITS WITH FLUID INTAKE OF ? BODY WEIGHT IN OUNCES PER DAY AND 2/3 BEING WATER. Goal Progress: Goal Met Goal 4:: NORMALIZE VOIDING FREQUENCEY TO EVERY 3-4 HOURS. Goal Progress: Goal Met Goal 5:: PATIENT WILL BE INDEP WITH A HEP/HOME INSTRUCTIONS FOR CONTINUED IMPROVEMENT ONCE FORMAL PHYSICAL THERAPY CONCLUDES. Goal Progress: Goal Met Plan Plan: D/C. PATIENT AGREEABLE. D/C Information d/c sentence: If there are questions or concerns regarding this patient's physical therapy, please feel free to call me at [phone]. Thank you for the referral of this patient. Sincerely, Urvashi London, PT, Cert MDT Balance/Gait/Functional tests Improvement % Improvement: 40
== END 2023-06-07 19:00 | disposition home or self-care (01) ==
LOC: PT 15:00
PROVIDERS: PCP Nurse Practitioner Family; Referring Provider Urology; Visit Provider Urology
DX: N39.3 Stress incontinence (female) (male) (principal)
CPT/HCPCS: 97162; 97530

== ENCOUNTER → 2023-11-29 | Outpatient (CLI) | payer OTHER, SELFPAY ==
[2023-11-29 12:38] LABS: Absolute Lymphocyte Count 1.78 X10^3/uL (0.83-4.51); Absolute Neutrophil Count 3.2 X10^3/uL (2.0-7.7); Basophil# 0.07 X10^3/uL; Basophil% 1.2 % (0-1); Eosinophil# 0.11 X10^3/uL; Eosinophils% 1.9 % (0-5); Hematocrit 44.9 % (37-47); Hemoglobin 14.7 g/dL (12.0-15.0); Lymphocyte # 1.78 X10^3/ul (0.83-4.51); Lymphocyte % 30.3 % (19-41); Mean Corp Hgb Conc 32.7 g/dL (32-36); Mean Corpuscular Hgb 31.3 pg (27.0-32.0); Mean Corpuscular Volume 95.7 fL (81-99); Mean Platelet Vol. 8.9 fl (6.2-12.0); Monocyte# 0.72 X10^3/uL; Monocyte% 12.3 % (0-10); NRBC Flagged by Analyzer 0 % (0-5); Neutrophil # 3.17 X10^3/uL (2.7-7.7); Platelet Count 262 K/mm3 (150-450); RBC Distribution Width CV 12.2 % (11.6-14.6); RBC Distribution Width SD 42.8 fl (35.1-43.9); Red Blood Count 4.69 M/mm3 (4.2-5.4); White Blood Count 5.9 K/mm3 (4.4-11.0)
[2023-11-29 12:55] LABS: Color, Urine Yellow (Yellow); Glucose, Dipstick Normal (Normal); Ketone-Dipstick 5 mg/dl (Negative); Leukocyte Esterase-Dipstick Negative /ul (Negative); Nitrite-Dipstick Negative (Negative); Occult Blood-Urine Negative /ul (Negative); Protein-Dipstick 15 mg/dl (Negative); Specific Gravity, Urine 1.025 (1.002-1.030); Urine Bilirubin Dipstick Negative (Negative); Urine Clarity Sl. Cloudy (Clear); Urine Urobilinogen Normal (Normal)
[2023-11-29 13:14] LABS: ALB/GLOB Ratio 1.3 RATIO (0.9-2.4); AST(SGOT) 12 U/L (15-37); Alanine Aminotransfer ALT/SGPT 19 U/L (13-56); Alkaline Phosphatase 60 U/L (45-117); Anion Gap 4 (5-15); BUN 19 mg/dL (7-18); Calcium,Total 9.3 mg/dL (8.5-10.1); Chloride 108 mmol/L (98-107); Cholesterol 235 mg/dL (200); Creatinine, Serum 0.95 mg/dL (0.55-1.02); EST Glomerular Filtration Rate 64 mL/min (>60); Est Glom Filt Rate - Afr Amer 78 mL/min (>60); Globulin 3.1 g/dL (2.2-4.2); Glucose 90 mg/dL (74-106); High Density Lipoprotein 81 mg/dL; Potassium 4.3 mmol/L (3.5-5.1); Protein, Total 7.1 g/dL (6.4-8.2); Sodium Level 141 mmol/L (136-145); Thyroid Stim Hormone (TSH) 0.77 uIU/mL (0.358-3.74); Triglycerides 75 mg/dL; Very Low Density Lipoprotein 15 mg/dL (5-40)
== END | disposition home or self-care (01) ==
LOC: LAB 11:44
PROVIDERS: PCP Nurse Practitioner Family; Referring Provider Nurse Practitioner Family; Visit Provider Nurse Practitioner Family
DX: Z13.220 Encounter for screening for lipoid disorders (principal); R03.0 Elevated blood-pressure reading, without diagnosis of hypertension; R74.01 Elevation of levels of liver transaminase levels
CPT/HCPCS: 36415; 80053; 80061; 81002; 84443; 85025

== ENCOUNTER → 2023-12-17 | Outpatient (CLI) | payer OTHER, SELFPAY ==
--- NOTE | 2023-12-17 15:52 | BD_ITS ---
STUDY: DUAL ENERGY X-RAY ABSORPTIOMETRY / DXA REASON FOR EXAM: Female, 58 years old. [id number] TECHNIQUE: Bone Mineral Density (BMD) measurements of lumbar spine and bilateral hips were obtained. COMPARISON: None. FINDINGS: Lumbar Spine (L1-L4): g/cm2 (0.923) / T-score (-1.1) / Z-score (0.2) Findings are suggestive of osteopenia with a low fracture risk. Left Femur Total: g/cm2 (0.855) / T-score (-0.7) / Z-score (0.2) Left Femoral Neck: g/cm2 (0.743) / T-score (-1.0) / Z-score (0.3) Right Femur Total: g/cm2 (0.882) / T-score (-0.5) / Z-score (0.4) Right Femoral Neck: g/cm2 (0.818) / T-score (-0.3) / Z-score (1.0) BD/Dexa Bone Density Study IMPRESSION: The patient is considered osteopenic as outlined below according to World Brett Organization (WHO) criteria with a low fracture risk. Reference Information: The T-score is the number of standard deviations above or below the standard which is normal for young adults at their peak bone mineral density. The World Health Organization (WHO) interprets the T-scores as follows: Above -1 Normal bone density Between -1 and -2.5 Osteopenia Equal to / or below -2.5 Osteoporosis As a practical clinical guideline, osteopenia may be graded as follows: Mild -1 through -1.5 Moderate -1.6 through -2.0 Severe -2.1 through -2.4 The Z-score is the number of standard deviations above or below age-matched controls. A Z-score of less than -1.5 would be considered abnormal. References: 1. NIH Osteoporosis and Related Bone Diseases www osteo.org 2. International Society for Clinical Densitometry www iscd.org 3. National Osteoporosis Foundation www nof.org Electronically Signed: Vamsi Akbar MD at 15:39 EDT ,
== END | disposition home or self-care (01) ==
PROVIDERS: PCP Nurse Practitioner Family; Referring Provider Nurse Practitioner Family; Visit Provider Nurse Practitioner Family
DX: Z13.820 Encounter for screening for osteoporosis (principal); Z78.0 Asymptomatic menopausal state
CPT/HCPCS: 77080

== ENCOUNTER → 2024-01-24 | Outpatient (CLI) | payer OTHER, SELFPAY ==
--- NOTE | 2024-01-24 14:01 | BI_ITS ---
MAMMOGRAPHY - BILATERAL SCREENING REASON FOR EXAM: Female, 59 years old. Routine annual screening examination. PERTINENT HISTORY: Non-contributory. TECHNIQUE: Digital bilateral breast elliott (3D mammographic acquisition) in the CC and MLO projections. 2-D mediolateral oblique (MLO) and craniocaudad (CC) views of both breasts were obtained. CAD: Full Field Digital Mammography with Computer Added Detection was performed. COMPARISON: Comparison is made with prior study dated January 18, 2023 and December 22, 2021. FINDINGS: Breast Composition: The breasts are heterogeneously dense, which may obscure small masses. There are no dominant masses or suspicious calcifications. Stable bilateral fat containing bilateral axillary lymph nodes. No other significant abnormalities are identified. There has been no significant change since the prior study. BI/SCRN MAMM (CAD)W/ELLIOTT BILAT IMPRESSION: Stable bilateral screening mammogram. Yearly follow-up mammogram recommended. (A) ASSESSMENT CATEGORY: BIRADS Category 2: Benign. A letter regarding these results will be sent to the patient by the facility within 30 days. Approximately 10% of breast cancers are not detected by mammography. A normal mammogram should not delay biopsy of a clinically suspicious abnormality. [id number] Electronically Signed: Vamsi Akbar MD at 15:10 EDT ,
== END | disposition home or self-care (01) ==
LOC: OPBI 14:00
PROVIDERS: PCP Nurse Practitioner Family; Referring Provider Obstetrics & Gynecology; Visit Provider Obstetrics & Gynecology
DX: Z12.31 Encounter for screening mammogram for malignant neoplasm of breast (principal)
CPT/HCPCS: 77063; 77067

== ENCOUNTER → 2024-02-12 | Outpatient (CLI) | payer OTHER, SELFPAY ==
--- NOTE | 2024-02-12 15:53 | US_ITS ---
INDICATION: incontnence-IUD LINING CHECK EXAMINATION: Ultrasound US Pelvis Non OB Complete With Transvaginal Imaging TECHNIQUE: Transabdominal and transvaginal pelvic ultrasound was performed. Grayscale, spectral waveform, and color flow Doppler evaluation of the adnexa. COMPARISON: None. FINDINGS: UTERUS: Anteverted. The uterus measures 5.8 x 4.6 x 2.9 cm. There is a fundal fibroid with shadowing calcifications measuring 1.2 x 1.1 x 1.0 cm. Nabothian cysts are present in the cervix. IUD is present in the mid endometrial cavity. Endometrium estimated at 8 mm. No endometrial fluid collections. RIGHT OVARY: 1.7 x 1.1 x 0.9 cm.. Non-enlarged, normal echogenicity. There is normal arterial inflow and venous outflow present in the right ovary. LEFT OVARY: 1.5 x 1.0 x 1.0 cm.. Non-enlarged, normal echogenicity. There is normal arterial inflow and venous outflow present in the left ovary. FREE FLUID: None. BLADDER: Bladder has normal configuration with volume estimated at 97.5 mL US/Pelvic w/ Transvaginal IMPRESSION: 1. IUD is noted in place projecting in the mid endometrial cavity. Endometrium measures 8 mm, no endometrial fluid noted. 2. Fundal fibroid with calcifications measuring 1.2 x 1.1 x 1.0 cm. 3. Normal appearance of both ovaries without solid or cystic masses or abnormal blood flow. 4. No free fluid. Electronically Signed: Michael Avalos MD at 22:18 EDT ,
== END | disposition home or self-care (01) ==
PROVIDERS: PCP Nurse Practitioner Family; Referring Provider Obstetrics & Gynecology; Visit Provider Obstetrics & Gynecology
DX: R32 Unspecified urinary incontinence (principal)
CPT/HCPCS: 76830; 76856

== ENCOUNTER → 2024-02-28 | Outpatient (CLI) | payer OTHER, SELFPAY ==
--- NOTE | 2024-02-28 07:29 | US_ITS ---
STUDY: ABDOMINAL ULTRASOUND - ELASTOGRAPHY REASON FOR VISIT: Female, 59 years old. Fatty liver TECHNIQUE: Sonographic evaluation of the right upper quadrant performed. Liver stiffness measurements were obtained on a Kincast RS 85 ultrasound machine using a CA 1-7 probe following the SRU guidelines. 3 measurements were obtained using a 2-D-SWE method. TheIQR/M was 12% suggesting a quality data set. TECHNICAL QUALITY: Adequate. COMPARISON: FINDINGS: LIVER: The liver is normal in size and shape with mildly increased echogenicity. There is no demonstrated mass lesion. Median liver stiffness measured 9.06 kPa. No focal hepatic lesion. No intrahepatic biliary ductal dilatation. There is no free fluid. GALLBLADDER AND BILIARY TREE: Normally distended gallbladder. No shadowing gallstone, pericholecystic fluid or gallbladder wall thickening. The proximal common bile duct measures 0.4 cm, which is within normal limits for the patient''s age. Songraphic Martinez''s sign: Negative. PANCREAS: No focal abnormality is demonstrated in the pancreas. No pancreatic ductal dilatation. RIGHT KIDNEY: The right kidney measures 9.9 cm. No hydronephrosis or nephrolithiasis. No renal mass. US/ABD Limited w/ Elastography IMPRESSION: Liver stiffness measures 9.06 kPa compatible with F2-F3 (Mild to moderate liver fibrosis) Metavir score. Hepatic steatosis. Electronically Signed: Genaro Perkins MD at 22:03 EDT ,
== END | disposition home or self-care (01) ==
LOC: US 07:29
PROVIDERS: PCP Nurse Practitioner Family; Referring Provider Internal Medicine Gastroenterology; Visit Provider Internal Medicine Gastroenterology
DX: K76.0 Fatty (change of) liver, not elsewhere classified (principal)
CPT/HCPCS: 76705; 76981

== ENCOUNTER → 2024-03-31 | Outpatient (CLI) | payer OTHER, SELFPAY ==
--- NOTE | 2024-03-31 16:15 | EMB_PTH ---
PATIENT: FREDRICK PATEL LOC: [facility] U#:[id number] AGE/SX: 59/F ROOM: RE03/31/[address]: Dr. Albina Leonard DO : 1965 BED: DIS: 03/31/2024 SPEC #: [id number] RECD: 03/31/24 18:24 STATUS: ROSLYN GREENWOOD #: [id number] HANNAH: 03/31/24 16:[address]: Albina Leonard DEPT: SURGICAL PATHOLOGY RECD BY: Rashida Hickman ENTERED: 04/01/24 10:37 SP TYPE: ENDOM BX/C JEAN CLAUDE DR: Katt Meyers, INSPECTOR ALUMINUM BOAT-C Tissues: Endometrium, NOS Procedures: Surgery Specimen Level IV HEADER OPERATION: Endometrial biopsy PRE-OP DIAGNOSIS: Thickened endometrium TISSUE SUBMITTED: Endometrial lining MICROSCOPIC DIAGNOSIS Endometrium, biopsy: A few fragments of superficial benign endometrial tissue with focal exogenous hormone effects. A few fragments of benign endocervical epithelium and mucous. See comment. NELSON/ 04/02/2024 COMMENT If there is a high suspicion of hyperplasia, rebiopsy is suggested if clinically indicated. Clinical correlation and appropriate follow up are necessary. MICROSCOPIC DESCRIPTION Slides are reviewed. GROSS DESCRIPTION Received is one container labeled with the patient's name and not further designated. The specimen consists of multiple irregular fragments of hemorrhagic mucoid tissue that in aggregate measure 1.5 x 0.5 x 0.1 cm. The specimen is totally submitted in one cassette. NELSON/ 04/01/2024 TC:5 CPT:99461
== END | disposition home or self-care (01) ==
PROVIDERS: PCP Nurse Practitioner Family; Visit Provider Obstetrics & Gynecology
DX: R93.89 Abnormal findings on diagnostic imaging of other specified body structures (principal)
CPT/HCPCS: 88305

== ENCOUNTER 2024-06-26 05:19 | Day surgery (SDC) | payer OTHER, SELFPAY ==
--- NOTE | 2024-06-19 08:34 | EKG12_ITS ---
Test Reason : PREOP Blood Pressure : / mmHG Vent. Rate : 068 BPM Atrial Rate : 068 BPM P-R Int : 160 ms QRS Dur : 092 ms QT Int : 390 ms P-R-T Axes : 056 050 065 degrees QTc Int : 414 ms Normal sinus rhythm Normal ECG Confirmed by Rodolfo Valdes ([id number]), television news video editor JUAN STUART ([id number]) on 06/22/2024 9:58:16 AM Referred By: Albina Leonard Confirmed By:Rodolfo Valdes
[2024-06-19 09:40] LABS: Hematocrit 42.3 % (37-47); Mean Corp Hgb Conc 33.1 g/dL (32-36); Mean Corpuscular Hgb 31.2 pg (27.0-32.0); Mean Corpuscular Volume 94.2 fL (81-99); Platelet Count 236 K/mm3 (150-450); RBC Distribution Width CV 12.1 % (11.6-14.6); RBC Distribution Width SD 41.9 fl (35.1-43.9); Red Blood Count 4.49 M/mm3 (4.2-5.4); White Blood Count 4.6 K/mm3 (4.4-11.0)
[2024-06-19 10:07] LABS: ALB/GLOB Ratio 1.3 RATIO (0.9-2.4); AST(SGOT) 17 U/L (15-37); Alanine Aminotransfer ALT/SGPT 19 U/L (13-56); Albumin, Serum 3.9 g/dL (3.2-5.0); Alkaline Phosphatase 61 U/L (45-117); Anion Gap 5 (5-15); BUN 17 mg/dL (7-18); BUN/Creat Ratio 20.3 RATIO (10-20); Calcium,Total 9.6 mg/dL (8.5-10.1); Chloride 106 mmol/L (98-107); Creatinine, Serum 0.84 mg/dL (0.55-1.02); EST Glomerular Filtration Rate 74 mL/min (>60); Est Glom Filt Rate - Afr Amer 90 mL/min (>60); Globulin 2.9 g/dL (2.2-4.2); Glucose 96 mg/dL (74-106); Protein, Total 6.8 g/dL (6.4-8.2); Sodium Level 140 mmol/L (136-145)
[2024-06-19 10:07] LABS: Magnesium 2.1 mg/dL (1.6-2.6)
[2024-06-26] VITALS (15 sets, daily range): BP systolic 112–119; BP diastolic 60–85; PULSE 62–83; RESP 14–16; TEMP 36.2–37.2; O2SAT 90–99; BMI 22.8
[2024-06-26] MEDS: dexAMETHasone 4 MG/ML Vial 8 MG IV (06:16)
[2024-06-26] MEDS: Magnesium 1 GM over 15 mins IV (06:17)
[2024-06-26] MEDS: Lactated Ringers 1,000 ML 40 ML IV (06:17)
[2024-06-26] MEDS: Celecoxib 200 MG Capsule 400 MG PO (06:34)
[2024-06-26] MEDS: Gabapentin 600 MG Tablet PO (06:34)
[2024-06-26] MEDS: Acetaminophen 500 MG Tablet 1000 MG PO (06:34)
[2024-06-26 07:05] LABS: Bedside Glucose 106 mg/dL (74-106)
[2024-06-26] MEDS: Bupivacaine 0.25% 30 ML Vial (07:10)
[2024-06-26] MEDS: Lubricating Jelly 60 GM Tube 30 GM (07:11)
--- NOTE | 2024-06-26 07:11 | PRE.ANES_ITS ---
ASA Classification* ASA Classification ASA Classification: 2 Assessment & Plan Anesthesia* Anesthesia Assessment Anesthesia Assessment: Discussed sedation and/or anesthesia options, risks, benefits, and alternatives with patient/parents/legal guardian/POA. Questions invited. The patient/parents/legal guardian/POA seems to understand and agrees to proceed with anesthesia plan. Reviewed the physical assessment, medical history, allergy history and patient home medications list prior to surgery/procedure/anesthetic and documented any changes. Performed airway and anesthesia risk assessments. Anesthesia Type Anesthesia Type: General (see written pre anesthesia record for full assessment) Anesthesia Focused Assessment* Temperature: 97.9 F Pulse Rate: 75 Blood Pressure: 114/76 Respiratory Rate: 16 Pulse Ox: 99 Airway Assessment Mouth opens: >3 cm Mallampati Score: II Focused Labs Anesthesia Preop lab: CBC WBC 4.6 K/mm3 (4.4-11.0) 06/19/24 09:02 RBC 4.49 M/mm3 (4.2-5.4) 06/19/24 09:02 Hgb 14.0 g/dL (12.0-15.0) 06/19/24 09:02 Hct 42.3 % (37-47) 06/19/24 09:02 Plt Count 236 K/mm3 (150-450) 06/19/24 09:02 CHEMISTRY Potassium 4.0 mmol/L (3.5-5.1) 06/19/24 09:03 Sodium 140 mmol/L (136-145) 06/19/24 09:03 Magnesium 2.1 mg/dL (1.6-2.6) 06/19/24 09:02 Phosphorus 3.8 mg/dL (2.5-4.9) 04/04/20 11:02 BUN 17 mg/dL (7-18) 06/19/24 09:03 Creatinine 0.84 mg/dL (0.55-1.02) 06/19/24 09:03 Glucose 96 mg/dL (74-106) 06/19/24 09:03 POC Glucose 106 mg/dL (74-106) 06/26/24 06:04 TSH 0.77 uIU/mL (0.358-3.74) 11/29/23 12:00 COAG PT 12.8 SECONDS (11.7-14.9) 04/13/22 14:03 Urine Test Negative Negative 02/26/17 08:45 Pre-Assessment Diagnosis/Proposed Procedure Planned Operative Procedure(s): TOTAL VAGINAL HYSTERECTOMY POSS BILAT SALPING- OOPHERECTOMY Anesthesia History Anesthesia History - director organizational: Anesthesia History - director organizational Hx Hospitalization No 06/15/24 13:23 Any Problems With Anesthesia No 06/15/24 13:23 Cholinesterase deficiency No 06/15/24 13:23 You/Your Family Experience No 06/15/24 13:23 fever (hyperthermia) with Relationship Recent Exposure to Contagious No 06/26/24 06:25 Disease Does patient have nerve No 06/15/24 13:23 stimulator Patient instructed to have device shut off --Does patient have Pacemaker No 06/26/24 06:25 or ICD? When Was Last Pacemaker Check QUESTION #4 FULL TEXT: You/Your Family Experience fever (hyperthermia) with Anesthesia Last Oral Intake Last Oral intake: Last Oral Intake NPO since 04:50 06/26/24 06:25 Meds taken in AM with sips of Yes 06/26/24 06:25 water? Meds patient instructed to omeprazole, inhalers 06/26/24 06:25 take am of surgery PONV PONV - director organizational: PONV - director organizational Female Yes 06/15/24 13:23 HX of Motion Sickness Yes 06/15/24 13:23 HX of N/V After Surgery No 06/15/24 13:23 Non-Smoker Yes 06/15/24 13:23 Duration of Surgery greater Yes 06/15/24 13:23 than 60 minutes Number of Risk Factors 4 06/15/24 13:23 PONV Score Severe Risk 06/15/24 13:23 Height & Weight Height & Weight: Anesthesia: Height & Weight Height 5 ft 7 in 06/26/24 06:25 Weight: 66 kg 06/26/24 06:25 Body Mass Index (BMI) 22.8 06/26/24 06:25 Respiratory Assessment Respiratory Assessment - director organizational: Respiratory Tract Infection Hx - director organizational Hx Respiratory Tract Infection Yes: VIRUS/ASTHMA FLARE/5 06/15/24 13:23 DAYS PREDNISONE/RESOLVING STOP Sleep Apnea STOP Sleep Apnea - director organizational: STOP Sleep Apnea - director organizational Hx Hypertension No 06/15/24 13:23 Hx Sleep Apnea No 06/15/24 13:23 CPAP BIPAP Do you snore loudly (louder Yes 06/15/24 13:23 than talking or can be heard Do you often feel tired/ Yes 06/15/24 13:23 fatigued/ sleepy during daytime? Has anyone observed you stop Yes 06/15/24 13:23 breathing during sleep? STOP Results Positive 06/15/24 13:23 QUESTION #5 FULL TEXT : Do you snore loudly (louder than talking or can be heard through closed doors)? 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 Specify any problems Hx of Preganancy in last 3 No 06/15/24 13:23 Months Nurse Filling Out Transfusion DSCHRIBER 06/15/24 13:23 & Questions: Date: 06/15/24 06/15/24 13:23 Time: 13:26 06/15/24 13:23 Patient unable to answer at this time (ie. confused, unrespo /Reproduction History /Reproductive History - director organizational: /Reproductive Hx- director organizational Hx Now No 06/15/24 13:23 Gestational Age (in weeks): EDC: Hx Hx Para Hx Section SAB No 06/15/24 13:23 Active Medications Active Medications: Current Medications Generic Name Dose Route Start Last Admin Trade Name Freq PRN Reason Stop Dose Admin Acetaminophen 1,000 mg 06/26/24 07:30 06/26/24 06:34 Acetaminophen 500 Mg Tablet PO 06/26/24 07:31 1,000 mg PREOP ONE Administration Celecoxib 400 mg 06/26/24 07:30 06/26/24 06:34 Celecoxib 200 Mg Capsule PO 06/26/24 07:31 400 mg X1 ONE Administration Dexamethasone Sodium Phosphate 8 mg 06/26/24 07:30 06/26/24 06:16 Dexamethasone 4 Mg/Ml Vial IV 06/26/24 07:31 8 mg X1 ONE Administration Gabapentin 600 mg 06/26/24 07:30 06/26/24 06:34 Gabapentin 600 Mg Tablet PO 06/26/24 07:31 600 mg PREOP ONE Administration Lactated Ringer's 1,000 mls @ 40 mls/hr 06/26/24 07:30 06/26/24 06:17 IV 40 mls/hr .Q25H JAZMIN Administration Cefazolin Sodium 2 gm/ Sodium 110 mls @ 150 mls/hr 06/26/24 07:30 Chloride IV 06/26/24 08:13 PREOP ONE Lactated Ringer's 1,000 mls @ 70 mls/hr 06/26/24 07:30 IV .[id number] JAZMIN Magnesium Sulfate 1 gm/ 102 mls @ 408 mls/hr 06/26/24 07:30 06/26/24 06:17 Dextrose IV 06/26/24 07:44 408 mls/hr X1 ONE Administration Insulin Human Lispro 0 unit 06/26/24 07:30 Insulin Lispro 100 Unit/Ml Insuln.Pen SC Q4H PRN PRN BG >/= 180, SEE PROTOCOL Protocol Ondansetron HCl 4 mg 06/26/24 07:30 Ondansetron 4 Mg/2 Ml Vial IV 06/26/24 07:31 X1 ONE PFSH Medical History History of steroid therapy Bladder disease Migraine headache History of hiatal hernia Gastric reflux Shortness of breath on exertion History of irregular heartbeat Wears glasses Alcohol use Anemia Fatty liver Back pain History of diverticulitis Non-smoker Leg cramps Diverticulitis Abnormal levels of other serum enzymes Abnormal ankle brachial index Essential tremor Increased bilirubin level Contraceptive management IBS (irritable bowel syndrome) Hx of migraines gastrointestinal Asthma Home Medications ?Medication ?Instructions ?Recorded ?Last Taken ?Type albuterol sulfate 90 mcg/actuation 1 puff inhalation Q6H PRN SOB 09/17/17 06/26/24 History aerosol inhaler (Proventil HFA) vitamin B complex 1 tab PO QDAY 09/17/17 Unknown History montelukast 10 mg tablet 10 mg PO QHS 10/03/18 Unknown History (Singulair) primidone 50 mg tablet 25 mg PO QHS 10/03/18 Unknown History cholecalciferol (vitamin D3) 50 4,000 unit PO DAILY 07/06/19 Unknown History mcg (2,000 unit) capsule fluticasone 250 mcg-salmeterol 50 1 inh inhalation BID 10/21/19 06/26/24 History mcg/dose blistr powdr for inhalation (Advair Diskus) Bifidobacterium infantis 4 mg 4 mg PO QHS 07/13/22 Unknown History capsule (Align) conjugated estrogens 0.625 mg/gram 0.625 mg vaginal SUWE 07/13/22 Unknown History vaginal cream (Premarin) vitamin E 800 unit capsule 800 unit PO DAILY 07/13/22 06/12/24 History coenzyme Q10 75 mg capsule (Ultra 75 mg PO DAILY 01/17/24 Unknown History CoQ10) levonorgestrel 20.4 mcg/24 hr (up 1 device intrauterine DAILY 01/17/24 Unknown History to 8 yrs) 52 mg intrauterine device (Liletta) omeprazole 20 mg capsule,delayed 20 mg PO DAILY PRN PRN GERD 04/21/24 06/26/24 History release ashwagandha extract 120 mg capsule 600 mg PO BID 06/12/24 Unknown History ascorbic acid (vitamin C) 500 mg 1 g PO DAILY 06/15/24 Unknown History tablet (C-500) calcium carbonate 600 mg PO DAILY 06/15/24 Unknown History ursodiol 250 mg tablet 250 mg PO BID 06/15/24 Unknown History zinc gluconate 50 mg tablet 50 mg PO DAILY 06/15/24 Unknown History ibuprofen 800 mg tablet 800 mg PO Q8H PRN pain #30 tabs 06/26/24 Unknown Rx oxycodone-acetaminophen 5 mg-325 1 tab PO Q4H PRN pain 7 days #20 06/26/24 Unknown Rx mg tablet (Percocet) tabs Allergy/AdvReac Type Severity Reaction Status Date / Time No Known Allergies Allergy Verified 06/26/24 06:24 Family History Mother Cancer Lymphoma Father Cancer Lung Heart disease Sister Hypercholesteremia Grandmother Colon cancer Surgical History Hx of colonoscopy Hx of nasal septoplasty History of hysteroscopy Social History Smoking Status: Never smoker second hand exposure: No alcohol intake: current alcohol intake frequency: a few times a month substance use type: does not use caffeine: Yes what type of physical activity do you participate in: none seatbelt use: always do you feel safe at home: Yes additional social history: 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
--- NOTE | 2024-06-26 07:11 | PRE.ANES_ITS ---
ASA Classification* ASA Classification ASA Classification: 2 Assessment & Plan Anesthesia* Anesthesia Assessment Anesthesia Assessment: Discussed sedation and/or anesthesia options, risks, benefits, and alternatives with patient/parents/legal guardian/POA. Questions invited. The patient/parents/legal guardian/POA seems to understand and agrees to proceed with anesthesia plan. Reviewed the physical assessment, medical history, allergy history and patient home medications list prior to surgery/procedure/anesthetic and documented any changes. Performed airway and anesthesia risk assessments. Anesthesia Type Anesthesia Type: General (see written pre anesthesia record for full assessment) Anesthesia Focused Assessment* Temperature: 97.9 F Pulse Rate: 75 Blood Pressure: 114/76 Respiratory Rate: 16 Pulse Ox: 99 Airway Assessment Mouth opens: >3 cm Mallampati Score: II Focused Labs Anesthesia Preop lab: CBC WBC 4.6 K/mm3 (4.4-11.0) 06/19/24 09:02 RBC 4.49 M/mm3 (4.2-5.4) 06/19/24 09:02 Hgb 14.0 g/dL (12.0-15.0) 06/19/24 09:02 Hct 42.3 % (37-47) 06/19/24 09:02 Plt Count 236 K/mm3 (150-450) 06/19/24 09:02 CHEMISTRY Potassium 4.0 mmol/L (3.5-5.1) 06/19/24 09:03 Sodium 140 mmol/L (136-145) 06/19/24 09:03 Magnesium 2.1 mg/dL (1.6-2.6) 06/19/24 09:02 Phosphorus 3.8 mg/dL (2.5-4.9) 04/04/20 11:02 BUN 17 mg/dL (7-18) 06/19/24 09:03 Creatinine 0.84 mg/dL (0.55-1.02) 06/19/24 09:03 Glucose 96 mg/dL (74-106) 06/19/24 09:03 POC Glucose 106 mg/dL (74-106) 06/26/24 06:04 TSH 0.77 uIU/mL (0.358-3.74) 11/29/23 12:00 COAG PT 12.8 SECONDS (11.7-14.9) 04/13/22 14:03 Urine Test Negative Negative 02/26/17 08:45 Pre-Assessment Diagnosis/Proposed Procedure Planned Operative Procedure(s): TOTAL VAGINAL HYSTERECTOMY POSS BILAT SALPING- OOPHERECTOMY Anesthesia History Anesthesia History - edging supervisor: Anesthesia History - edging supervisor Hx Hospitalization No 06/15/24 13:23 Any Problems With Anesthesia No 06/15/24 13:23 Cholinesterase deficiency No 06/15/24 13:23 You/Your Family Experience No 06/15/24 13:23 fever (hyperthermia) with Relationship Recent Exposure to Contagious No 06/26/24 06:25 Disease Does patient have nerve No 06/15/24 13:23 stimulator Patient instructed to have device shut off --Does patient have Pacemaker No 06/26/24 06:25 or ICD? When Was Last Pacemaker Check QUESTION #4 FULL TEXT: You/Your Family Experience fever (hyperthermia) with Anesthesia Last Oral Intake Last Oral intake: Last Oral Intake NPO since 04:50 06/26/24 06:25 Meds taken in AM with sips of Yes 06/26/24 06:25 water? Meds patient instructed to omeprazole, inhalers 06/26/24 06:25 take am of surgery PONV PONV - edging supervisor: PONV - edging supervisor Female Yes 06/15/24 13:23 HX of Motion Sickness Yes 06/15/24 13:23 HX of N/V After Surgery No 06/15/24 13:23 Non-Smoker Yes 06/15/24 13:23 Duration of Surgery greater Yes 06/15/24 13:23 than 60 minutes Number of Risk Factors 4 06/15/24 13:23 PONV Score Severe Risk 06/15/24 13:23 Height & Weight Height & Weight: Anesthesia: Height & Weight Height 5 ft 7 in 06/26/24 06:25 Weight: 66 kg 06/26/24 06:25 Body Mass Index (BMI) 22.8 06/26/24 06:25 Respiratory Assessment Respiratory Assessment - edging supervisor: Respiratory Tract Infection Hx - edging supervisor Hx Respiratory Tract Infection Yes: VIRUS/ASTHMA FLARE/5 06/15/24 13:23 DAYS PREDNISONE/RESOLVING STOP Sleep Apnea STOP Sleep Apnea - edging supervisor: STOP Sleep Apnea - edging supervisor Hx Hypertension No 06/15/24 13:23 Hx Sleep Apnea No 06/15/24 13:23 CPAP BIPAP Do you snore loudly (louder Yes 06/15/24 13:23 than talking or can be heard Do you often feel tired/ Yes 06/15/24 13:23 fatigued/ sleepy during daytime? Has anyone observed you stop Yes 06/15/24 13:23 breathing during sleep? STOP Results Positive 06/15/24 13:23 QUESTION #5 FULL TEXT : Do you snore loudly (louder than talking or can be heard through closed doors)? 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 Specify any problems Hx of Preganancy in last 3 No 06/15/24 13:23 Months Nurse Filling Out Transfusion DSCHRIBER 06/15/24 13:23 & Questions: Date: 06/15/24 06/15/24 13:23 Time: 13:26 06/15/24 13:23 Patient unable to answer at this time (ie. confused, unrespo /Reproduction History /Reproductive History - edging supervisor: /Reproductive Hx- edging supervisor Hx Now No 06/15/24 13:23 Gestational Age (in weeks): EDC: Hx Hx Para Hx Section SAB No 06/15/24 13:23 Active Medications Active Medications: Current Medications Generic Name Dose Route Start Last Admin Trade Name Freq PRN Reason Stop Dose Admin Acetaminophen 1,000 mg 06/26/24 07:30 06/26/24 06:34 Acetaminophen 500 Mg Tablet PO 06/26/24 07:31 1,000 mg PREOP ONE Administration Celecoxib 400 mg 06/26/24 07:30 06/26/24 06:34 Celecoxib 200 Mg Capsule PO 06/26/24 07:31 400 mg X1 ONE Administration Dexamethasone Sodium Phosphate 8 mg 06/26/24 07:30 06/26/24 06:16 Dexamethasone 4 Mg/Ml Vial IV 06/26/24 07:31 8 mg X1 ONE Administration Gabapentin 600 mg 06/26/24 07:30 06/26/24 06:34 Gabapentin 600 Mg Tablet PO 06/26/24 07:31 600 mg PREOP ONE Administration Lactated Ringer's 1,000 mls @ 40 mls/hr 06/26/24 07:30 06/26/24 06:17 IV 40 mls/hr .Q25H JAZMIN Administration Cefazolin Sodium 2 gm/ Sodium 110 mls @ 150 mls/hr 06/26/24 07:30 Chloride IV 06/26/24 08:13 PREOP ONE Lactated Ringer's 1,000 mls @ 70 mls/hr 06/26/24 07:30 IV .[id number] JAZMIN Magnesium Sulfate 1 gm/ 102 mls @ 408 mls/hr 06/26/24 07:30 06/26/24 06:17 Dextrose IV 06/26/24 07:44 408 mls/hr X1 ONE Administration Insulin Human Lispro 0 unit 06/26/24 07:30 Insulin Lispro 100 Unit/Ml Insuln.Pen SC Q4H PRN PRN BG >/= 180, SEE PROTOCOL Protocol Ondansetron HCl 4 mg 06/26/24 07:30 Ondansetron 4 Mg/2 Ml Vial IV 06/26/24 07:31 X1 ONE PFSH Medical History History of steroid therapy Bladder disease Migraine headache History of hiatal hernia Gastric reflux Shortness of breath on exertion History of irregular heartbeat Wears glasses Alcohol use Anemia Fatty liver Back pain History of diverticulitis Non-smoker Leg cramps Diverticulitis Abnormal levels of other serum enzymes Abnormal ankle brachial index Essential tremor Increased bilirubin level Contraceptive management IBS (irritable bowel syndrome) Hx of migraines gastrointestinal Asthma Home Medications ?Medication ?Instructions ?Recorded ?Last Taken ?Type albuterol sulfate 90 mcg/actuation 1 puff inhalation Q6H PRN SOB 09/17/17 06/26/24 History aerosol inhaler (Proventil HFA) vitamin B complex 1 tab PO QDAY 09/17/17 Unknown History montelukast 10 mg tablet 10 mg PO QHS 10/03/18 Unknown History (Singulair) primidone 50 mg tablet 25 mg PO QHS 10/03/18 Unknown History cholecalciferol (vitamin D3) 50 4,000 unit PO DAILY 07/06/19 Unknown History mcg (2,000 unit) capsule fluticasone 250 mcg-salmeterol 50 1 inh inhalation BID 10/21/19 06/26/24 History mcg/dose blistr powdr for inhalation (Advair Diskus) Bifidobacterium infantis 4 mg 4 mg PO QHS 07/13/22 Unknown History capsule (Align) conjugated estrogens 0.625 mg/gram 0.625 mg vaginal SUWE 07/13/22 Unknown History vaginal cream (Premarin) vitamin E 800 unit capsule 800 unit PO DAILY 07/13/22 06/12/24 History coenzyme Q10 75 mg capsule (Ultra 75 mg PO DAILY 01/17/24 Unknown History CoQ10) levonorgestrel 20.4 mcg/24 hr (up 1 device intrauterine DAILY 01/17/24 Unknown History to 8 yrs) 52 mg intrauterine device (Liletta) omeprazole 20 mg capsule,delayed 20 mg PO DAILY PRN PRN GERD 04/21/24 06/26/24 History release ashwagandha extract 120 mg capsule 600 mg PO BID 06/12/24 Unknown History ascorbic acid (vitamin C) 500 mg 1 g PO DAILY 06/15/24 Unknown History tablet (C-500) calcium carbonate 600 mg PO DAILY 06/15/24 Unknown History ursodiol 250 mg tablet 250 mg PO BID 06/15/24 Unknown History zinc gluconate 50 mg tablet 50 mg PO DAILY 06/15/24 Unknown History Allergy/AdvReac Type Severity Reaction Status Date / Time No Known Allergies Allergy Verified 06/26/24 06:24 Family History Mother Cancer Lymphoma Father Cancer Lung Heart disease Sister Hypercholesteremia Grandmother Colon cancer Surgical History Hx of colonoscopy Hx of nasal septoplasty History of hysteroscopy Social History Smoking Status: Never smoker second hand exposure: No alcohol intake: current alcohol intake frequency: a few times a month substance use type: does not use caffeine: Yes what type of physical activity do you participate in: none seatbelt use: always do you feel safe at home: Yes additional social history: [id number] 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
--- NOTE | 2024-06-26 07:24 | DCINST_ITS ---
Discharge Instructions Diet Discharge Diet: No restrictions Activity Discharge Activity: Return to Normal Activity, May Not Drive (while taking narcotic pain medications.) and May Shower May resume sexual activity in: 6-8 weeks Dressing / Incision Call your doctor if your incision/area has: Continuous Slow Oozing, Sudden Increased Bleeding, Increased Pain/ Swelling, Increased Redness and Foul Smelling Discharge Call your doctor if you observe: Fever of 101 or Higher, Inability to urinate, Inability to have a bowel movement and Using more than 1 pad per hour Follow Up Care Please Follow Up With: Albina Leonard DO Test Results: Test results from this visit will be discussed in further detail at your follow- up appointment, if applicable. Discharge Plan Admission Primary Reason for Your Visit: hysterectomy Attending Provider: Albina Leonard Primary Care Provider: Katt Meyers Consulting Providers: Kayla Last Instructions Print Language: Swedish Discharge Orders/Prescriptions Prescriptions: New ibuprofen 800 mg tablet 800 mg PO Q8H PRN (Reason: pain) Qty: 30 0RF oxycodone-acetaminophen [Percocet] 5-325 mg tablet 1 tab PO Q4H PRN (Reason: pain) 7 Days Qty: 20 0RF Rx Instructions: 1-2 tabs q 4 hrs as needed for pain Continued vitamin B complex tablet 1 tab PO QDAY albuterol sulfate [Proventil HFA] 90 mcg/actuation HFA aerosol inhaler 1 puff INHALATION Q6H PRN (Reason: SOB) primidone 50 mg tablet 25 mg PO QHS montelukast [Singulair] 10 mg tablet 10 mg PO QHS fluticasone propion-salmeterol [Advair Diskus] 250-50 mcg/dose blister with device 1 inh INHALATION BID Ultra CoQ10 75 mg capsule 75 mg PO DAILY Liletta 20.4 mcg/24 hrs (8 yrs) 52 mg intrauterine device 1 device intrauterine DAILY omeprazole 20 mg capsule,delayed release(DR/EC) 20 mg PO DAILY PRN PRN (Reason: GERD) ashwagandha extract 120 mg capsule 600 mg PO BID cholecalciferol (vitamin D3) 2,000 UNIT capsule 4,000 unit PO DAILY vitamin E 800 unit Capsule 800 unit PO DAILY Align 4 mg Capsule 4 mg PO QHS Premarin 0.625 mg/gram cream 0.625 mg vaginal SUWE calcium carbonate 600 mg calcium (1,500 mg) tablet 600 mg PO DAILY ascorbic acid (vitamin C) [C-500] 500 mg tablet 1 g PO DAILY zinc gluconate 50 mg tablet 50 mg PO DAILY ursodiol 250 mg tablet 250 mg PO BID Rx Instructions: TAKE 1 TABLET BY MOUTH TWICE A DAY Referrals / Follow Up: Katt Meyers, [facility] [Primary Care Provider] - Disposition Disposition (needs filled in before D/C Order can be placed): Home, Self Care
--- NOTE | 2024-06-26 07:24 | PCM.HP.BLA ---
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 Is patient in pain?: No Allergies No Known Allergies Allergy (Verified 06/12/24 10:53) Medications ?Medication ?Instructions ?Recorded ?Confirmed ?Type albuterol sulfate 90 mcg/actuation 1 puff inhalation Q6H PRN SOB 09/17/17 06/12/24 History aerosol inhaler (Proventil HFA) calcium citrate 250 mg PO BID 09/17/17 06/12/24 History vitamin B complex 1 tab PO QDAY 09/17/17 06/12/24 History montelukast 10 mg tablet 10 mg PO QPM 10/03/18 06/12/24 History (Singulair) primidone 50 mg tablet 25 mg PO QHS 10/03/18 06/12/24 History cholecalciferol (vitamin D3) 50 6,000 unit PO DAILY 07/06/19 06/12/24 History mcg (2,000 unit) capsule fluticasone 250 mcg-salmeterol 50 1 inh inhalation BID 10/21/19 06/12/24 History mcg/dose blistr powdr for inhalation (Advair Diskus) Bifidobacterium infantis 4 mg 4 mg PO QHS 07/13/22 06/12/24 History capsule (Align) conjugated estrogens 0.625 mg/gram 0.625 mg vaginal SUWE 07/13/22 06/12/24 History vaginal cream (Premarin) vitamin E 800 unit capsule 800 unit PO DAILY 07/13/22 06/12/24 History ursodiol 250 mg tablet See Rx Instructions .Route 11/19/22 06/12/24 Rx .COMPLEX #180 TABLETS coenzyme Q10 75 mg capsule (Ultra 75 mg PO DAILY 01/17/24 06/12/24 History CoQ10) levonorgestrel 20.4 mcg/24 hr (up intrauterine 01/17/24 06/12/24 History to 8 yrs) 52 mg intrauterine device (Liletta) erythromycin 5 mg/gram (0.5 %) eye 0.5 inch ophthalmic (eye) BID #3.5 03/22/24 06/12/24 Rx ointment grams omeprazole 20 mg capsule,delayed 20 mg PO DAILY 04/21/24 06/12/24 History release ashwagandha extract 120 mg capsule mg PO 06/12/24 06/12/24 History Is last menstrual period known: No Post menopausal: No Patient : No : No [facility] Medical History Wears glasses Alcohol use Anemia Fatty liver Easy bruising Back pain History of diverticulitis Heartburn Non-smoker Leg cramps History of pain when walking Nausea SOB (shortness of breath) Diverticulitis Abnormal levels of other serum enzymes Abnormal ankle brachial index Other migraine, not intractable, without status migrainosus Migraines Palpitations Essential tremor Neck pain Abdominal pain Increased bilirubin level Contraceptive management IBS (irritable bowel syndrome) Hx of migraines gastrointestinal Asthma Surgical History Hx of colonoscopy Hx of nasal septoplasty History of hysteroscopy Family History Mother Cancer LymphomaFather Cancer Lung Heart diseaseSister HypercholesteremiaGrandmother Colon cancer Social History Smoking Status: Never smoker second hand exposure: No alcohol intake: current alcohol intake frequency: a few times a month substance use type: does not use caffeine: Yes what type of physical activity do you participate in: none seatbelt use: always do you feel safe at home: Yes additional social history: Thdesyh-Jlbs-Dkxpaosgk 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 She is scheduled for a total vaginal hysterectomy, possible BSO for uterine hyperplasia and a midurethral sling procedure for stress urinary incontinence with Dr. Last on 06/26/2024. FINDINGS: UTERUS: Anteverted. The uterus measures 5.8 x 4.6 x 2.9 cm. There is a fundal fibroid with shadowing calcifications measuring 1.2 x 1.1 x 1.0 cm. Nabothian cysts are present in the cervix. IUD is present in the mid endometrial cavity. Endometrium estimated at 8 mm. No endometrial fluid collections. RIGHT OVARY: 1.7 x 1.1 x 0.9 cm.. Non-enlarged, normal echogenicity. There is normal arterial inflow and venous outflow present in the right ovary. LEFT OVARY: 1.5 x 1.0 x 1.0 cm.. Non-enlarged, normal echogenicity. There is normal arterial inflow and venous outflow present in the left ovary. FREE FLUID: None. BLADDER: Bladder has normal configuration with volume estimated at 97.5 mL US/Pelvic w/ Transvaginal IMPRESSION: 1. IUD is noted in place projecting in the mid endometrial cavity. Endometrium measures 8 mm, no endometrial fluid noted. 2. Fundal fibroid with calcifications measuring 1.2 x 1.1 x 1.0 cm. 3. Normal appearance of both ovaries without solid or cystic masses or abnormal blood flow. 4. No free fluid. repeat endometrial biopsy in March was benign. History 1 Elective abortions Hx Para 1 Spontaneous abortions Hx # Term Pregnancies Ectopic pregnancies Hx # Pregnancies Multiple births # of living children Past Pregnancies Del. Date Name GA/Weeks Outcome Route Bth Weight Gen Labor Lgth Anesthesia Del Locatn Provider FOB Unknown 1982 Neo ROS Const ROS Unobtainable: All systems reviewed & are unremarkable except as noted in H Resp Resp: Reports system reviewed and no additional complaints, except as documented; Denies cough GI GI: Reports as per HPI Psych Psych: Reports system reviewed and no additional complaints, except as documented Exam Const General: cooperative, healthy appearing, comfortable and no acute distress Resp Effort & Inspection: normal respiratory effort Skin General: no rashes or lesions noted Psych Appearance: grossly normal Speech and Movement: speech and movement normal Coding Level of Care Code Off vis,est,level 4 Diagnoses Stress incontinence N39.3 History of endometrial hyperplasia Z87.42 Assessment and Plan Assessment and Plan (1) Stress incontinence: Status: Acute (2) History of endometrial hyperplasia: Status: Acute Comment: 03/2017 no atypia. D&C per Dr. Zhu and mirena IUD placed Plan After discussing the patient's diagnosis and treatment plan options, patient wishes to proceed with surgical management. I have discussed with the patient the risks, benefits, and alternatives of the procedure which include but are not limited to risks of anesthesia, bleeding, infection, possible damage to bowel, bladder, or surrounding vasculature which could lead to additional surgery to evaluate any complications. Patient agrees to procedure and wishes to proceed. ACOG/uptodate references given for additional information regarding procedure. plan is for total vaginal hysterectomy, possible BSO with myself and midurethral sling with Dr. Last.
--- NOTE | 2024-06-26 07:30 | HYST_PTH ---
PATIENT: FREDRICK PATEL LOC: [facility] [place] U#:[id number] AGE/SX: 59/F ROOM: RE06/26/[address]: Dr. Albina Leonard DO : 1965 BED: DIS: 06/26/2024 SPEC #: [id number] RECD: 06/26/24 10:41 STATUS: ROSLYN GREENWOOD #: [id number] HANNAH: 06/26/24 07:[address]: Albina Leonard DEPT: SURGICAL PATHOLOGY RECD BY: Linda Tillman ENTERED: 06/26/24 12:37 SP TYPE: HYSTERECT OTHR DR: Dr. Kayla Last, MD Katt Meyers, WEIGHING STATION OPERATOR-C Tissues: Uterus, NOS Procedures: Surgery Specimen Level V HEADER OPERATION: Hysterectomy, total vaginal, cystoscopy PRE-OP DIAGNOSIS: Stress incontinence, history of endometrial hyperplasia TISSUE SUBMITTED: Cervix, uterus, bilateral fallopian tubes MICROSCOPIC DIAGNOSIS Uterus, cervix, bilateral fallopian tubes, hysterectomy, bilateral salpingectomy: Cervix - Mild chronic inflammation Endometrium - Simple cystic endometrial hyperplasia without atypia Myometrium - Intramural and subserosal leiomyomas (largest measuring 2.0cm in greatest dimension) Bilateral fallopian tubes- No pathologic diagnosis. See comment. Rito 07/01/2024 COMMENT Subserosal leiomyoma shows extensive calcification and hyalinization. MICROSCOPIC DESCRIPTION Slides are reviewed. GROSS DESCRIPTION Received in fixative is one container labeled with the patient's name and designated uterus, cervix, bilateral fallopian tubes. The specimen consists of a hysterectomy specimen consisting of uterus with cervix and attached left fallopian tube and detached right fallopian tube. The uterus with cervix weighs 49 gm and measures 7.5 x 4.5 x 2.5 cm. The serosal surface is focally ragged and hemorrhagic. The ectocervical mucosa is unremarkable. The external os is slit-like in contour. The endocervical canal measures 2.5 cm in length and the endocervical mucosa is zarate glistening and unremarkable. The triangular endometrial cavity measures 3.5 cm in length and 1.5 cm in width. The endometrium is zarate, glistening without any mass lesion and measures 0.1 cm in thickness. Serosal surface shows a calcified nodule measuring 2.0 x 1.0 x 1.0cm. Sections of uterine wall reveal multiple intramural nodules, largest measures 0.5cm in greatest dimension. Uterine wall measures up to 1.5cm in thickness. Detached right fallopian tube measures 2.0cm in length and 0.5cm in diameter. Fimbrial end is identified. Sections reveal unremarkable cut surfaces. The attached left fallopian tube measures 4.5cm in length and 0.3cm in diameter. Fimbrial end is not identified. Sections reveal unremarkable cut surfaces. Computerized Table Cutter sections are submitted in eleven cassettes as follows: 1 - anterior cervix, 2 - posterior cervix, 3 & 5- anterior uterine wall (cassette 3&4 also contain intramural nodular masses), 6&7 - posterior uterine wall (endometrium is submitted in entirety), 8- intramural nodular masses, 9- calcified subserosal nodular mass, entirely submitted after decalcification, 10- detached right fallopian tube, 11- attached left fallopian tube. SJ: 06/26/2024 TC:1 CPT: 92718,32807
[2024-06-26] MEDS: Ipratropium/Albuterol Sulfate 3 ML AMPUL.NEB INHALATION (07:32)
[2024-06-26] MEDS: Cefazolin 2 GM in 0.9% Normal Saline (100mL Bag) 100 ML IV (07:43)
--- NOTE | 2024-06-26 08:57 | DCINST_ITS ---
Discharge Instructions Diet Discharge Diet: No restrictions Activity Discharge Activity: May Shower May resume sexual activity in: 6-8 weeks Lifting Restrictions: no lifting over 5 pounds Additional Activity Instructions:: No exercise, strenuous activity, nothing per vagina except estrogen cream, no swimming, no hot tubs, no tub bathing Dressing / Incision Call your doctor if your incision/area has: Continuous Slow Oozing, Sudden Increased Bleeding, Increased Pain/ Swelling, Increased Redness and Foul Smelling Discharge Call your doctor if you observe: Fever of 101 or Higher, Inability to urinate, Inability to have a bowel movement and Using more than 1 pad per hour Follow Up Care Please Follow Up With: Albina Leonard DO When: Dr. Last, the office will call to make follow up arrangements. Test Results: Test results from this visit will be discussed in further detail at your follow- up appointment, if applicable. Discharge Plan Admission Primary Reason for Your Visit: hysterectomy Attending Provider: Albina Leonard Primary Care Provider: Katt Meyers Consulting Providers: Kayla Last Instructions Print Language: Guamanian Discharge Orders/Prescriptions Prescriptions: New ibuprofen 800 mg tablet 800 mg PO Q8H PRN (Reason: pain) Qty: 30 0RF oxycodone-acetaminophen [Percocet] 5-325 mg tablet 1 tab PO Q4H PRN (Reason: pain) 7 Days Qty: 20 0RF Rx Instructions: 1-2 tabs q 4 hrs as needed for pain cephalexin 500 mg capsule 500 mg PO Q12 3 Days Qty: 6 0RF Continued vitamin B complex tablet 1 tab PO QDAY albuterol sulfate [Proventil HFA] 90 mcg/actuation HFA aerosol inhaler 1 puff INHALATION Q6H PRN (Reason: SOB) primidone 50 mg tablet 25 mg PO QHS montelukast [Singulair] 10 mg tablet 10 mg PO QHS fluticasone propion-salmeterol [Advair Diskus] 250-50 mcg/dose blister with device 1 inh INHALATION BID Ultra CoQ10 75 mg capsule 75 mg PO DAILY Liletta 20.4 mcg/24 hrs (8 yrs) 52 mg intrauterine device 1 device intrauterine DAILY omeprazole 20 mg capsule,delayed release(DR/EC) 20 mg PO DAILY PRN PRN (Reason: GERD) ashwagandha extract 120 mg capsule 600 mg PO BID cholecalciferol (vitamin D3) 2,000 UNIT capsule 4,000 unit PO DAILY vitamin E 800 unit Capsule 800 unit PO DAILY Align 4 mg Capsule 4 mg PO QHS Premarin 0.625 mg/gram cream 0.625 mg vaginal SUWE calcium carbonate 600 mg calcium (1,500 mg) tablet 600 mg PO DAILY ascorbic acid (vitamin C) [C-500] 500 mg tablet 1 g PO DAILY zinc gluconate 50 mg tablet 50 mg PO DAILY ursodiol 250 mg tablet 250 mg PO BID Rx Instructions: TAKE 1 TABLET BY MOUTH TWICE A DAY Referrals / Follow Up: Katt Meyers, CYTOMETRY TECHNOLOGIST-C [Primary Care Provider] - Disposition Disposition (needs filled in before D/C Order can be placed): Home, Self Care
--- NOTE | 2024-06-26 09:00 | PCM.OPRPT ---
Report of Operation Date of Procedure: 06/26/24 Pre-Operative Diagnosis: Stress urinary incontinence Post-Operative Diagnosis: Same Surgery/Procedure Performed:: Mid urethral sling, cystoscopy with bilateral ureteral catheterization Surgeon: Kayla Last Type of Anesthesia: General Specimen's removed: none Estimated Blood Loss (mL): 10cc Description of Procedure: The patient is a 59-year-old female with stress urinary incontinence who presents for mid urethral sling insertion in combination with hysterectomy. Following completion of the gynecology procedure, the patient was placed into dorsolithotomy position. The Benito catheter was removed and the cystoscope was inserted through the urethra under direct visualization into the urinary bladder. The bladder mucosa was visualized in its entirety revealing no evidence of laceration, injury, hemorrhage, foreign body, mass, ulceration or other abnormality. The 5 Mauritanian whistle-tip catheter was used to gently cannulate each ureteral orifice and it was advanced to 20 cm bilateral. There was no evidence of obstruction, hemorrhage or injury to either collecting system. At this time the cystoscope was removed and the Benito catheter was reinserted to straight drain with the balloon inflated with 10 cc. She was then placed into Trendelenburg position. The mid urethra was isolated and injected submucosally with vasopressin for hydrostatic dissection and hemostatic control. A midline incision approximately 1.5 cm in length was made and sharp and blunt dissection was performed on either side of the urethra with care being taken to avoid entrance into the urethra or the vaginal mucosa. At this time the provided trocars were passed through the periurethral space and into the obturator complexes bilaterally. The tensioning suture was used to place the sling against the urethra and appropriately tensioned. The tensioning suture was then cut. The incision was closed using running interlocking 2-0 Vicryl. The Benito catheter was then removed. The cystoscope was inserted through the urethra under direct visualization into the urinary bladder. There is no evidence of injury, laceration, foreign body within the bladder or urethra. At this time the bladder was emptied and the cystoscope was removed. She was awakened and taken to the recovery room in good condition. There were no complications during this procedure. Grafts/Implants Used: Altis mid urethral sling Complications None Admit VTE Documentation VTE Present on Admission: Yes VTE Mechan Device Prophylaxis: SCD's VTE Pharm Prophylaxis ordered?: No Reason prophylaxis not ordered:: Treatment Not Indicated
--- NOTE | 2024-06-26 09:27 | OP.PCM_ITS ---
Problems Associated Problem List Diagnoses (1) Stress incontinence: (2) Endometrial hyperplasia without atypia: Report of Operation Date of Procedure: 06/26/24 Pre-Operative Diagnosis: endometrial hyperplasia, stress urinary incontinence Post-Operative Diagnosis: endometrial hyperplasia, stress urinary incontinence Surgery/Procedure Performed:: total vaginal hysterectomy, bilateral salpingectomy Description of Surgical Findings:: Patient was taken to the operating room and was placed under general anesthesia was prepped and draped in normal sterile fashion in the dorsal lithotomy pos ition. Preoperative antibiotics and SCDs and Benito catheter was placed inside the bladder. Weighted speculum was placed in the vagina and the anterior and posterior lip of the cervix was grasped with 2 Ruth clamps and circumferentially injected with dilute vasopressin. A circumferential incision was made with a scalpel and the posterior cul-de-sac was entered into sharply and a longneck speculum was placed. The anterior cul-de-sac was also dissected down and entered into sharply and the uterosacral ligaments were clamped cut and suture ligated bilaterally followed by the cardinal ligaments which were Clamped cut and suture ligated bilaterally with 0 Monocryl. The uterus serially descended and progressive bites were taken bilaterally up to the level of the utero-ovarian ligament bilaterally which was clamped transected and double ligated with 0 Monocryl suture and 0 Vicryl free tie and also using the hand held ligasure. Bilateral fallopian tubes and ovaries were well visualized and noted be within normal limits and the bilateral fallopian tubes were transected across the base with a Mary Kay clamp and removed and sutured with 0 Vicryl suture. Excellent hemostasis was noted. Posterior peritoneum was reapproximated with 2-0 Vicryl and a modified Larios stitch was placed through the posterior vaginal cuff and bilateral uterosacral ligaments across the posterior cul-de-sac ski mming along to provide apical support to the vagina. The vagina was closed with [id number] 0 Vicryl pop offs including the posterior and anterior peritoneum in the reapproximation. Excellent hemostasis was noted. All instruments removed from the vagina clear urine was noted at the end of the procedure and patient was awoken and taken recovery in stable condition. The CHANGE MANAGEMENT MANAGER assistant to the director helped with retracting, suctioning, and suture cutting. Surgeon: Albina Leonard master cosmetologist: Tanvir Martino Type of Anesthesia: General Specimen's removed: uterus, cervix, bilateral fallopian tubes Drains: none Estimated Blood Loss (mL): 50cc Description of Procedure: Patient was taken to the operating room and was placed under general anesthesia was prepped and draped in normal sterile fashion in the dorsal lithotomy position. Preoperative antibiotics and SCDs and Benito catheter was placed inside the bladder. Weighted speculum was placed in the vagina and the anterior and posterior lip of the cervix was grasped with 2 Ruth clamps and circumferentially injected with dilute vasopressin. A circumferential incision was made with a scalpel and the posterior cul-de-sac was entered into sharply and a longneck speculum was placed. The anterior cul-de-sac was also dissected down and entered into sharply and the uterosacral ligaments were clamped cut and suture ligated bilaterally followed by the cardinal ligaments which were Clamped cut and suture ligated bilaterally with 0 Monocryl. The uterus serially descended and progressive bites were taken bilaterally up to the level of the utero-ovarian ligament bilaterally which was clamped transected and double ligated with 0 Monocryl suture and 0 Vicryl free tie and also using the hand held ligasure. Bilateral fallopian tubes and ovaries were well visualized and noted be within normal limits and the bilateral fallopian tubes were transected across the base with a Mary Kay clamp and removed and sutured with 0 Vicryl suture. Excellent hemostasis was noted. Posterior peritoneum was reapproximated with 2-0 Vicryl and a modified Larios stitch was placed through the posterior vaginal cuff and bilateral uterosacral ligaments across the posterior cul-de-sac skimming along to provide apical support to the vagina. Spike was instered to help with hemostasis from oozing edges of the peritoneum. The vagina was closed with [id number] 0 Vicryl pop offs including the posterior and anterior peritoneum in the reapproximation. Excellent hemostasis was noted. All instruments removed from the vagina clear urine was noted at the end of the procedure and patient was awoken and taken recovery in stable condition. The CHANGE MANAGEMENT MANAGER assistant to the director helped with retracting, suctioning, and suture cutting. Procedure Start Time: 08:02 Procedure Stop Time: 09:20 Complications none Multi Select Codes Urinary/Genital Urinary/Genital CPT Codes: 78443 TVH+BS/O <250gr uterus
[2024-06-26] MEDS: Ondansetron 4 MG/2 ML Vial IV (09:35)
--- NOTE | 2024-06-26 09:49 | PCM.POST.ANE ---
Anesthesia: Postop Eval I Current Vital Signs Temperature: 97.3 F Pulse Rate: 83 Blood Pressure: 113/76 Respiratory Rate: 16 Pulse Ox: 93 Oxygen Delivery Method: Room Air Assessment Airway patent: Yes Spontaneous unlabored respirations: Yes Mental status: Awake and Calm nausea: No Vomiting: No Anesthesia Complication: No Fluid Hydration Crystalloid volume administer (ml): 1,400 Total IV fluid infused: 1,400 Progress Note Anesthesia document: Postop Eval 1 completed: Yes
--- NOTE | 2024-06-26 10:01 | POSTOPAN2_ITS ---
Anesthesia Postop Eval I Sum Postop Eval Completion status Anesthesia document: Postop Eval 1 completed: Yes Anesthesia Postop Eval I Summary Anesthesia Postop Eval I Summary: Anesthesia Postop Eval I: Assessment Summary Airway patent Yes 06/26/24 09:50 [email or web address] Spontaneous unlabored Yes 06/26/24 09:50 [email or web address] respirations Mental status Awake,Calm 06/26/24 09:50 [email or web address] nausea No 06/26/24 09:50 [email or web address] Vomiting No 06/26/24 09:50 [email or web address] Anesthesia Postop Eval I: Fluid Summary Crystalloid volume administer 1,400 06/26/24 09:50 [email or web address] (ml) Colloids volume administered ( ml) Blood Product volume administered (ml) Total IV fluid infused 1,400 06/26/24 09:50 [email or web address] Anesthesia Postop Eval I: Summary Notes Anesthesia Complication No 06/26/24 09:50 [email or web address] Anesthesia Complication Comment: Post-operative progress note Anesthesia: Postop Eval II Evaluation Mental status: Awake Pain Level: 0 nausea: No Vomiting: No
--- NOTE | 2024-06-26 10:01 | PCM.POSTANE2 ---
Anesthesia Postop Eval I Sum Postop Eval Completion status Anesthesia document: Postop Eval 1 completed: Yes Anesthesia Postop Eval I Summary Anesthesia Postop Eval I Summary: Anesthesia Postop Eval I: Assessment Summary Airway patent Yes 06/26/24 09:50 PLATE PUT IN [email or web address] Spontaneous unlabored Yes 06/26/24 09:50 PLATE PUT IN WORKER.[email or web address] respirations Mental status Awake,Calm 06/26/24 09:50 PLATE PUT IN [email or web address] nausea No 06/26/24 09:50 PLATE PUT IN [email or web address] Vomiting No 06/26/24 09:50 PLATE PUT IN [email or web address] Anesthesia Postop Eval I: Fluid Summary Crystalloid volume administer 1,400 06/26/24 09:50 PLATE PUT IN [email or web address] (ml) Colloids volume administered ( ml) Blood Product volume administered (ml) Total IV fluid infused 1,400 06/26/24 09:50 PLATE PUT IN [email or web address] Anesthesia Postop Eval I: Summary Notes Anesthesia Complication No 06/26/24 09:50 PLATE PUT IN [email or web address] Anesthesia Complication Comment: Post-operative progress note Anesthesia: Postop Eval II Evaluation Mental status: Awake Pain Level: 0 nausea: No Vomiting: No
[2024-06-26 10:15] LABS: Absolute Lymphocyte Count 0.34 X10^3/uL (0.83-4.51); Absolute Neutrophil Count 3.2 X10^3/uL (2.0-7.7); Basophil# 0.03 X10^3/uL; Basophil% 0.8 % (0-1); Eosinophil# 0.01 X10^3/uL; Eosinophils% 0.3 % (0-5); Hematocrit 39.4 % (37-47); Hemoglobin 12.8 g/dL (12.0-15.0); Lymphocyte # 0.34 X10^3/ul (0.83-4.51); Lymphocyte % 9.3 % (19-41); Mean Corp Hgb Conc 32.5 g/dL (32-36); Mean Corpuscular Hgb 31.1 pg (27.0-32.0); Mean Corpuscular Volume 95.9 fL (81-99); Mean Platelet Vol. 8.9 fl (6.2-12.0); Monocyte# 0.09 X10^3/uL; Monocyte% 2.5 % (0-10); NRBC Flagged by Analyzer 0 % (0-5); Neutrophil # 3.19 X10^3/uL (2.7-7.7); Neutrophil % 86.8 % (47-70); POSITIVE DIFFERENTIAL YES; Platelet Count 188 K/mm3 (150-450); RBC Distribution Width CV 12.1 % (11.6-14.6); RBC Distribution Width SD 42.8 fl (35.1-43.9); Red Blood Count 4.11 M/mm3 (4.2-5.4); White Blood Count 3.7 K/mm3 (4.4-11.0)
[2024-06-26] MEDS: Lactated Ringers @ 70 MLS/HR 70 ML IV ×2 (11:16→12:37)
[2024-06-26] MEDS: Phenazopyridine 95 MG Tablet 190 MG PO (16:07)
== END 2024-06-26 16:30 | disposition home or self-care (01) ==
LOC: SDC 05:20 → AC 05:21
PROVIDERS: Anesthesiology; Urology; PCP Nurse Practitioner Family; Referring Provider Obstetrics & Gynecology; Visit Provider Obstetrics & Gynecology
PROC: (CPT 58260; principal; 2024-06-26 07:10)
PROC: 0TJB8ZZ Inspection of Bladder, Via Natural or Artificial Opening Endoscopic (ICD-10-PCS; CPT 57288; 2024-06-26 07:10)
DX: N39.3 Stress incontinence (female) (male) (principal); D25.2 Subserosal leiomyoma of uterus; D25.1 Intramural leiomyoma of uterus; N85.00 Endometrial hyperplasia, unspecified; J45.909 Unspecified asthma, uncomplicated; Z79.51 Long term (current) use of inhaled steroids; Z79.899 Other long term (current) drug therapy; K76.0 Fatty (change of) liver, not elsewhere classified
CPT/HCPCS: 58262; 57288; 36415; 80053; 82962; 83735; 85025; 85027; 86850; 86900; 86901; 88307; 93005; 94640; J7120; C1758; J2405; J3475

== ENCOUNTER → 2025-01-08 | Outpatient (CLI) | payer OTHER, SELFPAY ==
[2025-01-08 09:44] LABS: Absolute Lymphocyte Count 1.55 X10^3/uL (0.83-4.51); Absolute Neutrophil Count 2.5 X10^3/uL (2.0-7.7); Basophil# 0.05 X10^3/uL; Eosinophil# 0.16 X10^3/uL; Eosinophils% 3.2 % (0-5); Hematocrit 43.2 % (37-47); Hemoglobin 14.1 g/dL (12.0-15.0); Lymphocyte # 1.55 X10^3/ul (0.83-4.51); Lymphocyte % 31.3 % (19-41); Mean Corp Hgb Conc 32.6 g/dL (32-36); Mean Corpuscular Hgb 31.1 pg (27.0-32.0); Mean Corpuscular Volume 95.4 fL (81-99); Mean Platelet Vol. 8.8 fl (6.2-12.0); Monocyte# 0.72 X10^3/uL; Monocyte% 14.5 % (0-10); NRBC Flagged by Analyzer 0 % (0-5); Neutrophil # 2.47 X10^3/uL (2.7-7.7); Neutrophil % 49.8 % (47-70); Platelet Count 270 K/mm3 (150-450); RBC Distribution Width CV 12.5 % (11.6-14.6); RBC Distribution Width SD 43.6 fl (35.1-43.9); Red Blood Count 4.53 M/mm3 (4.2-5.4)
[2025-01-08 10:10] LABS: Color, Urine Yellow (Yellow); Glucose, Dipstick Normal (Normal); Ketone-Dipstick Negative (Negative); Leukocyte Esterase-Dipstick Negative /ul (Negative); Nitrite-Dipstick Negative (Negative); Occult Blood-Urine Negative /ul (Negative); Protein-Dipstick 15 mg/dl (Negative); Urine Bilirubin Dipstick Negative (Negative); Urine Clarity Clear (Clear); Urine Urobilinogen Normal (Normal)
[2025-01-08 10:19] LABS: ALB/GLOB Ratio 1.8 RATIO (0.9-2.4); AST(SGOT) 23 U/L (<=31); Alanine Aminotransfer ALT/SGPT 18 U/L (<=34); Albumin, Serum 4.5 g/dL (3.4-4.8); Alkaline Phosphatase 66 U/L (35-104); Anion Gap 10 (5-15); BUN 16 mg/dL (4-19); Calcium,Total 9.4 mg/dL (7.6-11.0); Carbon Dioxide 25.6 mmol/L (21.0-32.0); Chloride 106 mmol/L (98-108); Cholesterol 227 mg/dL (<=200); EST Glomerular Filtration Rate 74 (>60); Globulin 2.5 g/dL (2.2-4.2); Glucose 92 mg/dL (70-99); High Density Lipoprotein 88 mg/dL; Low Density Lipoprotein Calc. 127 mg/dL; Magnesium 2.2 mg/dL (1.5-2.2); Potassium 4.7 mmol/L (3.3-5.1); Protein, Total 7.1 g/dL (5.9-8.4); Sodium Level 142 mmol/L (133-145); Total Bilirubin 1.17 mg/dL (0.00-1.30); Triglycerides 61 mg/dL; Very Low Density Lipoprotein 12 mg/dL (5-40); cholesterol:hdl ratio screen 2.58
[2025-01-09 08:09] LABS: CRP, High Sensitivity 0.41 mg/L (0.00-3.00)
== END | disposition home or self-care (01) ==
LOC: LAB 09:10
PROVIDERS: PCP Nurse Practitioner Family; Referring Provider Nurse Practitioner Family; Visit Provider Nurse Practitioner Family
DX: E78.5 Hyperlipidemia, unspecified (principal); R03.0 Elevated blood-pressure reading, without diagnosis of hypertension; R00.2 Palpitations
CPT/HCPCS: 36415; 80053; 80061; 81002; 83735; 84443; 85025; 86141

== ENCOUNTER → 2025-01-29 | Outpatient (CLI) | payer OTHER, SELFPAY ==
--- NOTE | 2025-01-29 12:48 | BI_ITS ---
EXAM: SCRN MAMM (CAD)W/ELLIOTT BILAT 01/29/2025 CLINICAL HISTORY: F, Age 60 y/o , SCREENING FOR MALIGNANT NEOPLASM OF BREAST TECHNIQUE: Bilateral screening digital breast tomosynthesis with 2D and 3D images. Computer aided detection. COMPARISON: Prior exam(s) dated 01/24/2024, 01/18/2023. FINDINGS: TISSUE DENSITY: The breast tissue is heterogenously dense, which may obscure small masses. The mammogram demonstrates that the patient has dense breasts. Supplemental screening with whole breast ultrasound or MRI may be considered for further evaluation. Bilateral Breast Mammographic Findings: No significant masses, calcifications or other abnormalities are identified. BI/SCRN MAMM (CAD)W/ELLIOTT BILAT IMPRESSION: Right Breast: BIRADS 1 NEGATIVE. Left Breast: BIRADS 1 NEGATIVE. OVERALL FINAL ASSESSMENT: BIRADS 1 NEGATIVE. RECOMMENDATION: Routine annual follow-up in 1 Year A letter with findings and recommendations will be mailed to the patient. Reading Location: [id number]
== END | disposition home or self-care (01) ==
LOC: OPBI 12:46
PROVIDERS: PCP Nurse Practitioner Family; Referring Provider Obstetrics & Gynecology; Visit Provider Obstetrics & Gynecology
DX: Z12.31 Encounter for screening mammogram for malignant neoplasm of breast (principal)
CPT/HCPCS: 77063; 77067

== ENCOUNTER → 2025-02-04 | Outpatient (CLI) | payer OTHER, SELFPAY | END | disposition home or self-care (01) | LOC: PSN 08:15 | PROVIDERS: PCP Nurse Practitioner Family; Referring Provider Nurse Practitioner Family; Visit Provider Nurse Practitioner Family | DX: R00.2 Palpitations (principal) | CPT/HCPCS: 93225; 93226 ==